=== PATIENT | female | born 1960 | race Caucasian/White ===

== ENCOUNTER → 2016-11-08 | Outpatient (CLI) | payer OTHER ==
[2015-10-06 16:16] VITALS: BP 142/67
[~2016-11-08] MED LIST: BUDE1AMP IH; BUPR300T4 PO; CRESTOR40 MG PO; CYCL10TA2 PO; DICL75TA PO; GABA-586 PO; IPRA4AER IH; LISI1TAB3 PO; LORA10TA3 PO; MELO15TA23 PO; NORT25CA PO; OMEP20CA9 PO; OXYC-323 PO; SENN1TAB70 PO; TEMA30CA PO; TRAZ100T12 PO; VENL75CA6 PO; ZOLP10TA PO
--- NOTE | 2016-11-08 14:55 | KCIC ---
Bilateral digital screening mammograms: Reason for examination: Routine screening. Comparison is made to previous study dated 04/29/2015. The skin and nipples show no abnormalities. No abnormal lymph nodes are seen. The breast parenchyma is predominantly fatty. (Breast density: Category A.) There are small parenchymal densities seen bilaterally which have not changed. There are no new dominant masses, suspicious calcifications or architectural distortions. Impression: No evidence of malignancy. Recommend routine screening. BI-RADS Category 2: Benign. "Our facility is accredited by the [employer] Mammography Program." This patient's information has been entered into a reminder system for the patient to be notified with the results of her examination and a target date for the next mammogram. Electronically signed by: Majo Moralez MD (11/08/2016 2:51 PM)
== END | disposition home or self-care (01) ==
LOC: KCIC MAMMO 13:52
PROVIDERS: ATTEND Nurse Practitioner Family
DX: Z12.31 Encounter for screening mammogram for malignant neoplasm of breast (principal)
CPT/HCPCS: G0202; 77067

== ENCOUNTER → 2016-12-19 | Outpatient (CLI) | payer OTHER ==
[2015-10-06 16:16] VITALS: BP 142/67
--- NOTE | 2016-12-19 16:30 | CARD ---
APPROVED REPORT EXAM: Two-dimensional and M-mode echocardiogram with Doppler and color Doppler. Other Information Quality : Average Rhythm : NSR INDICATION Syncope 2D DIMENSIONS RVDd2.4 (2.9-3.5cm)Left Atrium(2D)2.9 (1.6-4.0cm) IVSd1.0 (0.7-1.1cm)Aortic Root(2D)3.0 (2.0-3.7cm) LVDd3.8 (3.9-5.9cm)LVOT Diameter2.0 (1.8-2.4cm) PWd1.0 (0.7-1.1cm)LVDs2.2 (2.5-4.0cm) FS (%) 32.5 %SV46.1 ml LVEF(%)64.3 (>50%) Aortic Valve AoV Peak Dion.122.6cm/sAoV VTI25.1cm AO Peak GR.6.0mmHgLVOT Peak Dion.128.1cm/s LVOT VTI 28.26cmAO Mean GR.3mmHg AMOR (VMAX)3.00ax6DPR (VTI)3.48cm2 Mitral Valve MV E Ibltmnyj04.7cm/sMV DECEL [id number] MV A Tihnepnv21.8cm/sMV DBW00tl E/A Ratio1.2MV A Cqtpkgvm786da MVA (PHT)3.74cm2 TDI E/Lateral E'9.4E/Medial E'10.3 Tricuspid Valve TR P. Dnpnzoxd717qa/sRAP GVAEZORY3zoEx TR Peak Gr.63iuGrTBCO98jsHe Pulmonary Vein S1 Lysudxff30.2cm/sD2 Yfjwhdjs46.0cm/s LEFT VENTRICLE The left ventricle is normal size. There is normal left ventricular wall thickness. Left ventricle sy stolic function is normal. The Ejection Fraction is 60-65%. There is normal LV segmental wall motion. The left ventricular diastolic function and filling is normal for age. There is no ventricular septa l defect visualized. RIGHT VENTRICLE The right ventricle is normal size. The right ventricular systolic function is normal. ATRIA The left atrium size is normal. The right atrium size is normal. The interatrial septum is intact wit h no evidence for an atrial septal defect or patent foramen ovale as noted on 2-D or Doppler imaging. AORTIC VALVE The aortic valve is mildly to moderately calcified. The aortic valve is trileaflet. Doppler and Color Flow revealed no significant aortic regurgitation. There is no significant aortic valvular stenosis. MITRAL VALVE The mitral valve is normal in structure. There is no mitral valve stenosis. Doppler and Color Flow re vealed mild mitral regurgitation. TRICUSPID VALVE The tricuspid valve is not well visualized. Doppler and Color Flow revealed trace to mild tricuspid r egurgitation. The PA pressure was estimated at 30 mmHg. There is no tricuspid valve stenosis. PULMONIC VALVE The pulmonic valve is not well visualized. Doppler and Color Flow revealed no pulmonic valvular regur gitation. There is no pulmonic valvular stenosis. GREAT VESSELS The aortic root is normal in size. The ascending aorta is normal in size. Normal pulmonary venous estefania w (Doppler). The IVC is normal in size and collapses >50% with inspiration. PERICARDIAL EFFUSION There is a trace to small pericardial effusion with no hemodynamic significance. Critical Notification Critical Value: No <Conclusion> The left ventricle is normal size. Left ventricle systolic function is normal. The Ejection Fraction is 60-65%. There is no significant aortic valvular stenosis. Doppler and Color Flow revealed no significant aortic regurgitation. Doppler and Color Flow revealed mild mitral regurgitation. Doppler and Color Flow revealed trace to mild tricuspid regurgitation. The PA pressure was estimated at 30 mmHg. There is a trace to small pericardial effusion with no hemodynamic significance.
== END | disposition home or self-care (01) ==
LOC: ECHO 12:43
PROVIDERS: ATTEND Internal Medicine Cardiovascular Disease
DX: I08.1 Rheumatic disorders of both mitral and tricuspid valves (principal); I31.3 Pericardial effusion (noninflammatory)
CPT/HCPCS: 93306

== ENCOUNTER 2017-01-09 08:21 | Outpatient (CLI) | payer OTHER ==
[2017-01-09] VITALS (9 sets, daily range): BP systolic 113–142; BP diastolic 73–83
[~2017-01-09 08:21] MED LIST changes: +HEPARIN for IV BOLUS 10,000 UNIT/10 ML VIAL. ONE; +IODIXANOL 320 MG/ML 100 ML VIAL. ONE; +IOHEXOL 300 MG/ML 100ML VIAL. ONE; +LIDOCAINE 2% 20 ML VIAL. ONE; +MIDAZOLAM HCL/PF 2 MG/2 ML VIAL. ONE; +NITROGLYCERIN 200 MCG/2 ML SYRINGE FOR CATH/VASC LAB. ONE; +VERAPAMIL 5 MG/2 ML VIAL. ONE; +fentaNYL PF VIAL 100 MCG/2 ML VIAL ONE
[2017-01-09] MEDS ORDERED: VERAPAMIL 5 MG/2 ML VIAL. IART ONE (08:30)
[2017-01-09] MEDS ORDERED: NITROGLYCERIN 200 MCG/2 ML SYRINGE FOR CATH/VASC LAB. IART ONE (08:30)
[2017-01-09] MEDS ORDERED: IOHEXOL 300 MG/ML 100ML VIAL. IART ONE (08:30)
[2017-01-09] MEDS ORDERED: HEPARIN for IV BOLUS 10,000 UNIT/10 ML VIAL. IART ONE (08:30)
[2017-01-09] MEDS ORDERED: fentaNYL PF VIAL 100 MCG/2 ML VIAL IV ONE (08:30)
[2017-01-09] MEDS ORDERED: MIDAZOLAM HCL/PF 2 MG/2 ML VIAL. IV ONE (08:30)
[2017-01-09] MEDS ORDERED: LIDOCAINE 2% 20 ML VIAL. IJ ONE (08:30)
[2017-01-09 08:41] LABS: CALCIUM 8.8 mg/dL (8.5-10.1); CREATININE 1.1 mg/dL (0.6-1.0); POTASSIUM 3.9 mmol/L (3.5-5.1)
[2017-01-09 08:42] LABS: INR 0.9 (0.8-1.1); PROTHROMBIN TIME PATIENT 11.8 SEC (11.7-14.0)
[2017-01-09 08:43] LABS: HEMATOCRIT 38.9 % (36.0-47.0); HEMOGLOBIN 13.1 g/dL (12.0-15.5); RED BLOOD COUNT 3.85 x10^6/uL (3.50-5.40); WHITE BLOOD COUNT 9.7 x10^3/uL (4.0-11.0)
[2017-01-09 08:44] LABS: BASO # 0.1 x10^3/uL (0.0-0.2); BASO % 1 % (0-3); EOS % 4 % (0-3); LYMPH # 4.1 x10^3/uL (1.0-4.8); LYMPH % 42 % (24-48); MEAN CORPUSCULAR HEMOGLOBIN 34 pg (25-35); MEAN CORPUSCULAR HGB CONC 34 g/dL (31-37); MEAN CORPUSCULAR VOLUME 101 fL (79-100); MONO % 10 % (0-9); NEUT % 44 % (31-73); PLATELET COUNT 246 x10^3/uL (140-400); RED CELL DISTRIBUTION WIDTH 13.8 % (11.5-14.5)
[2017-01-09] MEDS ORDERED: CONTRAST GIVEN MC PRN (08:45)
--- NOTE | 2017-01-09 09:17 | CARD ---
APPROVED REPORT Procedure(s) performed: Left heart catheterization, selective coronary angiography and left ventricul ography via right transradial approach Moderate sedation: 30 min INDICATION The indication(s) include : unstable angina . PROCEDURE NARRATIVE After explaining the risks, benefits and alternative options, informed consent was obtained from jorge ent. Patient was brought to the cardiac [facility] [employer] and right wrist was prepped and draped in the usual fashion after confirming a positive modified Elie's test. Arterial access was obtained in the [facility] t radial artery and a 6 Uzbek sheath was inserted. 6 Uzbek Cristian and 6F JR4 catheters were used t o perform selective angiography of the left and right coronary arteries respectively. 6 Uzbek pigta il catheter was used to perform left ventriculography. Patient tolerated the procedure well. Hemost asis was achieved using TR band. There were no immediate complications. The following findings were noted. FINDINGS 1. Hemodynamics: Left ventricular end-diastolic pressure of 20 mmHg. No pullback gradient across th e aortic valve. 2. Left ventriculography: Normal left ventricle systolic function with ejection fraction estimated at 75%. No significant mitral regurgitation seen. 3. Coronary angiography: a. The left main coronary artery arose from the left sinus of Valsalva, gave rise to the left anteri or descending and left circumflex arteries and did not show any significant stenosis. b. The left anterior descending artery did not show any significant stenosis. c. The left circumflex artery did not show any significant stenosis. d. The right coronary artery was a large and dominant vessel arising from the right sinus of Valsalv a that did not show any significant stenosis. Conclusion 1. No significant coronary artery disease 2. Normal left ventricle systolic function with ejection fraction estimated at 75% Recommendations Cardiac Risk Reduction Program
[2017-01-09] MEDS ORDERED: IV 1/2 NORMAL SALINE 1,000 ML IV SCH (09:18)
--- NOTE | 2017-01-09 09:18 | PDOC ---
MODERATE SEDATION ASSESSMENT RISKS/ALTERNATIVES Risks/Alternatives Risks and alternatives of this type of sedation and procedure discussed with: RISK/ALTERNATIVES: Patient H & P ON CHART H & P H & P on chart and reviewed for co-morbid conditions and appropriate labs. H&P ON CHART: Yes STATUS PREG STATUS ASSESSED: N/A MEDS/ALLERGIES REVIEWED Meds/Allergies Reviewed Medications and Allergies including time and route of recently administered narcotics and sedatives. MEDS/ALLERGIES REVIEWED: Yes ASA RATING ASA RATING: II AIRWAY ASSESSMENT Airway Assessment Airway patency, oral function limitations, presence of caps, crowns, dentures, partials, and ability to extend neck assessed. AIRWAY ASSESSMENT: Yes MALLAMPATI SCORE MALLAMPATI SCORE: II PRE-SEDATION ASSESSMENT PRE-SEDATION ASSESSMENT: Yes NORMA SAL MD Jan 09, 2017 09:18
[2017-01-09] MEDS ORDERED: HYDR25TA9 PO (10:17)
[2017-01-09] MEDS ORDERED: LISI-338 PO (10:17)
[2017-01-09] MEDS ORDERED: FAMO40TA4 PO (10:17)
== END 2017-01-09 11:20 | disposition home or self-care (01) ==
LOC: CCL 08:21
PROVIDERS: ATTEND Internal Medicine Cardiovascular Disease
DX: I20.9 Angina pectoris, unspecified (principal); I10 Essential (primary) hypertension; F44.9 Dissociative and conversion disorder, unspecified; M19.91 Primary osteoarthritis, unspecified site; F41.9 Anxiety disorder, unspecified; F32.9 Major depressive disorder, single episode, unspecified; F17.200 Nicotine dependence, unspecified, uncomplicated; Z86.69 Personal history of other diseases of the nervous system and sense organs; Z88.6 Allergy status to analgesic agent; Z90.49 Acquired absence of other specified parts of digestive tract; Z90.710 Acquired absence of both cervix and uterus; Z72.89 Other problems related to lifestyle; Z88.1 Allergy status to other antibiotic agents; Z88.0 Allergy status to penicillin; Z88.8 Allergy status to other drugs, medicaments and biological substances
CPT/HCPCS: 36415; 80048; 85025; 85610; 93458; 99152; 99153; C1769; C1892; J1644; J2250; J3010; J3490; Q9967; J2001

== ENCOUNTER → 2017-05-15 | Outpatient (CLI) | payer OTHER | END | disposition home or self-care (01) | LOC: KCIC 11:24 | DX: M51.37 Other intervertebral disc degeneration, lumbosacral region (principal); I70.0 Atherosclerosis of aorta; M79.605 Pain in left leg | CPT/HCPCS: 72114 ==

== ENCOUNTER → 2017-09-21 | Outpatient (CLI) | payer OTHER | END | disposition home or self-care (01) | LOC: KCIC DEXA 10:09 | DX: I10 Essential (primary) hypertension (principal); Z13.820 Encounter for screening for osteoporosis (principal); M85.89 Other specified disorders of bone density and structure, multiple sites; E78.00 Pure hypercholesterolemia, unspecified | CPT/HCPCS: 77080 ==

== ENCOUNTER → 2017-11-13 | Outpatient (CLI) | payer OTHER | END | disposition home or self-care (01) | LOC: KCIC MAMMO 13:55 | DX: Z12.31 Encounter for screening mammogram for malignant neoplasm of breast (principal) | CPT/HCPCS: 77067 ==

== ENCOUNTER → 2017-11-30 | Outpatient (CLI) | payer OTHER | END | disposition home or self-care (01) | LOC: KCIC MRI 12:26 | DX: M51.36 Other intervertebral disc degeneration, lumbar region (principal); I10 Essential (primary) hypertension; E78.00 Pure hypercholesterolemia, unspecified; E78.5 Hyperlipidemia, unspecified; J45.909 Unspecified asthma, uncomplicated; K21.9 Gastro-esophageal reflux disease without esophagitis | CPT/HCPCS: 72148 ==

== ENCOUNTER → 2017-12-14 | Outpatient (CLI) | payer OTHER | END | disposition home or self-care (01) | LOC: PNCL 09:35 | DX: M54.5 Low back pain (principal); M79.605 Pain in left leg; I10 Essential (primary) hypertension; J44.9 Chronic obstructive pulmonary disease, unspecified; E78.00 Pure hypercholesterolemia, unspecified; E78.5 Hyperlipidemia, unspecified; F32.9 Major depressive disorder, single episode, unspecified; Z87.891 Personal history of nicotine dependence; Z85.42 Personal history of malignant neoplasm of other parts of uterus; Z90.49 Acquired absence of other specified parts of digestive tract; Z90.710 Acquired absence of both cervix and uterus; Z86.69 Personal history of other diseases of the nervous system and sense organs | CPT/HCPCS: 99214 ==

== ENCOUNTER → 2017-12-20 | Outpatient (CLI) | payer OTHER ==
[~2017-12-20] MED LIST changes: -BUDE1AMP IH; -BUPR300T4 PO; -CRESTOR40 MG PO; -CYCL10TA2 PO; -DICL75TA PO; -GABA-586 PO; -HEPARIN for IV BOLUS 10,000 UNIT/10 ML VIAL. ONE; -IODIXANOL 320 MG/ML 100 ML VIAL. ONE; +IOHEXOL 180 MG/ML 10 ML VIAL.; -IOHEXOL 300 MG/ML 100ML VIAL. ONE; -IPRA4AER IH; -LIDOCAINE 2% 20 ML VIAL. ONE; +LIDOCAINE 2% PF 2ML VIAL.; -LISI1TAB3 PO; -LORA10TA3 PO; -MELO15TA23 PO; -MIDAZOLAM HCL/PF 2 MG/2 ML VIAL. ONE; -NITROGLYCERIN 200 MCG/2 ML SYRINGE FOR CATH/VASC LAB. ONE; -NORT25CA PO; -OMEP20CA9 PO; -OXYC-323 PO; -SENN1TAB70 PO; -TEMA30CA PO; -TRAZ100T12 PO; -VENL75CA6 PO; -VERAPAMIL 5 MG/2 ML VIAL. ONE; -ZOLP10TA PO; -fentaNYL PF VIAL 100 MCG/2 ML VIAL ONE; +methylPREDNISolone ACETATE 40 MG/ML VIAL.; +methylPREDNISolone ACETATE 80 MG/ML VIAL.
== END | disposition home or self-care (01) ==
LOC: PNCL 11:19
DX: M51.16 Intervertebral disc disorders with radiculopathy, lumbar region (principal); I10 Essential (primary) hypertension; J44.9 Chronic obstructive pulmonary disease, unspecified; F31.9 Bipolar disorder, unspecified; F41.9 Anxiety disorder, unspecified; K21.9 Gastro-esophageal reflux disease without esophagitis; Z88.0 Allergy status to penicillin; Z88.5 Allergy status to narcotic agent; Z88.1 Allergy status to other antibiotic agents; Z88.8 Allergy status to other drugs, medicaments and biological substances; Z98.42 Cataract extraction status, left eye; Z98.41 Cataract extraction status, right eye; Z96.1 Presence of intraocular lens; H40.9 Unspecified glaucoma; Z90.49 Acquired absence of other specified parts of digestive tract; Z90.710 Acquired absence of both cervix and uterus; M19.90 Unspecified osteoarthritis, unspecified site; Z79.899 Other long term (current) drug therapy; Z86.69 Personal history of other diseases of the nervous system and sense organs; Z85.42 Personal history of malignant neoplasm of other parts of uterus; Z87.891 Personal history of nicotine dependence
CPT/HCPCS: 62323; J1030; J1040; J2001; Q9965

== ENCOUNTER → 2018-01-09 | Outpatient (CLI) | payer OTHER ==
[2017-01-09 11:05] VITALS: BP 133/74
[~2018-01-09] MED LIST changes: +ACET500T68 PO; +BUDE1AMP IH; +BUPR300T4 PO; +CETI10TA16 PO; +CRESTOR40 MG PO; +CYCL10TA2 PO; +DICL75TA PO; +FAMO40TA4 PO; +GABA-586 PO; +HYDR25TA9 PO; +IBUP100O25 PO; -IOHEXOL 180 MG/ML 10 ML VIAL.; +IOHEXOL 180 MG/ML 10 ML VIAL. ONE; +IPRA4AER IH; -LIDOCAINE 2% PF 2ML VIAL.; +LIDOCAINE 2% PF 2ML VIAL. ONE; +LISI-338 PO; +LISI1TAB3 PO; +LORA0.5T PO; +LORA10TA3 PO; +MELO15TA23 PO; +NAPR220C4 PO; +NORT25CA PO; +OMEP20CA9 PO; +OXYC-323 PO; +PROAIR HFA8.5 GM INH; +SALM50DI IH; +SENN1TAB70 PO; +TEMA30CA PO; +TRAZ-86 PO; +VENL75CA6 PO; +ZOLP10TA PO; -methylPREDNISolone ACETATE 40 MG/ML VIAL.; +methylPREDNISolone ACETATE 40 MG/ML VIAL. ONE; -methylPREDNISolone ACETATE 80 MG/ML VIAL.; +methylPREDNISolone ACETATE 80 MG/ML VIAL. ONE
--- NOTE | 2018-01-09 21:58 | PAIN ---
DATE OF SERVICE: 01/09/2018 PROGRESS NOTE FOR PAIN CLINIC DIAGNOSIS: Lumbar radiculopathy with lumbar degenerative disk disease. HISTORY OF PRESENT ILLNESS: The patient is a 57-year-old female who returns for followup status post lumbar epidural steroid injection x 1. The patient reports only about 20% improvement initially with the pain returning in her low back and left lower extremity. The patient reports the pain left hip, posterior gluteus, posterior thigh, radiating to the posterior knee on the left side. The patient reports it is an 8 on a scale of 10 at its worst, average and at its least and is an 8 today. The patient reports it is tingling, burning, cramping, shooting with increased cramping after the injection. The patient reports she feels that her back is more mobile now, but the pain in her leg is still fairly persistent. The patient reports it awakens her from sleep about every 6 hours, better with repositioning, that is getting out of bed, changing positions and then getting back to sleep. The patient reports no new motor or sensory deficits, no new bowel or bladder incontinence or other complaints. PHYSICAL EXAMINATION: VITAL SIGNS: The patient's blood pressure is /69, pulse 78, respirations 18, temperature 98.1 degrees Fahrenheit. Height is 5 feet 6 inches, weight is 191 pounds. GENERAL: The patient is awake, alert, oriented, appropriate, very pleasant demeanor. HEENT: Shows normocephalic, atraumatic. Extraocular movements are intact and symmetrical. Oral cavity: Mucous membranes are moist and pink. Dentition is intact. NECK: Shows anterior throat supple without palpable lymphadenopathy noted. Swallow reflex is symmetrical. CHEST: Shows normal on inspection. Breath sounds are clear to auscultation bilaterally. HEART: Shows S1, S2 clear. No murmurs auscultated. ABDOMEN: Soft, nontender, nondistended. No palpable organomegaly is noted. No rebound or guarding demonstrated. BACK: Shows spine grossly in the midline. Normal appearing thoracic kyphosis and some minor flattening of lumbar lordotic curvature. Lumbar paraspinous muscle shows symmetrical on inspection, on palpation shows some moderate tenderness, but only diffusely without significant radiation, without atrophy, hypertrophy. The patient has good rotational motion, both laterally as well as extension and flexion without significant pain reported. EXTREMITIES: Lower extremities show deep tendon reflexes 1+ in the patellar and tendo calcaneus tendons, are equal. Motor exam is approximately 5 on a scale of 5 on the right and 4/5 on the left with dorsiflexion and extension. Peripheral pulses are 1+ posterior tibia. No peripheral edema is noted bilaterally. Options were discussed with the patient. The patient's old chart was reviewed as her current medication regimen updated. Current review of systems updated today as well. We will proceed with a second lumbar epidural steroid injection today with fluoroscopic guidance. Risks were again discussed including, but not limited to bleeding, infection, possibility of epidural hematoma, subsequent neurological compromise, dural puncture, headaches, spinal cord and/or nerve damage, side effects of steroid medication and poor results regarding pain control. The patient understands and wished to proceed. The patient will return to the clinic in approximately 2 weeks for followup, was counseled on return appointment, activity level and side effects to be aware of. DIAGNOSIS: Lumbar radiculopathy with lumbar degenerative disk disease. PROCEDURE: Lumbar epidural steroid injection, translaminar approach at L5-S1 level using C-arm fluoroscopic guidance under sterile prep and drape using local anesthetic. MEDICATION INJECTED: A total of 120 mg Depo-Medrol plus 10 mL of preservative-free normal saline and 2 mL of Isovue for contrast. CONDITION AT DISCHARGE: Stable. The patient tolerated the procedure well, had no complications. DESTINEE WAYNE MD DR: IGOR/jadon JOB#: [id number] / [id number]
== END | disposition home or self-care (01) ==
LOC: PNCL 10:34
PROVIDERS: ATTEND Anesthesiology
DX: M51.16 Intervertebral disc disorders with radiculopathy, lumbar region (principal); Z88.0 Allergy status to penicillin; Z88.1 Allergy status to other antibiotic agents; Z88.5 Allergy status to narcotic agent; Z88.8 Allergy status to other drugs, medicaments and biological substances
CPT/HCPCS: 62323; J1030; J1040; J2001; Q9965

== ENCOUNTER → 2018-01-15 | Outpatient (CLI) | payer OTHER ==
[2017-01-09 11:05] VITALS: BP 133/74
[~2018-01-15] MED LIST changes: -IOHEXOL 180 MG/ML 10 ML VIAL. ONE; -LIDOCAINE 2% PF 2ML VIAL. ONE; -methylPREDNISolone ACETATE 40 MG/ML VIAL. ONE; -methylPREDNISolone ACETATE 80 MG/ML VIAL. ONE
--- NOTE | 2018-01-16 01:51 | RAD ---
MR#: [id number] Date of Study: 01/15/2018 Ordering Physician: NORMA SAL, Referring Physician: NORMA SAL, Tech: Aris Collado MBA, RDMS, RVT, RDCS, RTR APPROVED REPORT Patient Location : OUT-PATIENT Indications Lower Extremity Edema : Left Findings Stone scale images of the bilateral sapheno-femoral junctions do not reveal any obvious evidence of th rombus. The left GSV measures 4.3 mm and does not reflux. The right GSV measures 5.1 mm and does not reflux. Bilateral LSV do not show evidence of reflux. Critical Notification Critical Value: No <Conclusion> Negative for reflux. Signed by : Abad Almeida, Electronically Approved : 01/16/2018 01:50:43
== END | disposition home or self-care (01) ==
LOC: US 13:32
PROVIDERS: ATTEND Internal Medicine Cardiovascular Disease
DX: R60.0 Localized edema (principal); I10 Essential (primary) hypertension; E78.00 Pure hypercholesterolemia, unspecified; J44.9 Chronic obstructive pulmonary disease, unspecified; Z79.899 Other long term (current) drug therapy; Z72.89 Other problems related to lifestyle; Z87.891 Personal history of nicotine dependence; Z85.42 Personal history of malignant neoplasm of other parts of uterus; Z86.69 Personal history of other diseases of the nervous system and sense organs; Z90.49 Acquired absence of other specified parts of digestive tract; Z90.710 Acquired absence of both cervix and uterus; Z88.0 Allergy status to penicillin; Z88.1 Allergy status to other antibiotic agents; Z88.8 Allergy status to other drugs, medicaments and biological substances; Z88.5 Allergy status to narcotic agent; Z88.6 Allergy status to analgesic agent
CPT/HCPCS: 93970

== ENCOUNTER → 2018-02-13 | Outpatient (CLI) | payer OTHER ==
[2017-01-09 11:05] VITALS: BP 133/74
--- NOTE | 2018-02-13 20:52 | PAIN ---
DATE OF SERVICE: 02/13/2018 PROGRESS NOTE FOR PAIN CLINIC DIAGNOSIS: Lumbar radiculopathy with lumbar degenerative disk disease. HISTORY OF PRESENT ILLNESS: The patient is a 57-year-old female who returns for followup status post lumbar epidural steroid injection x 2. The patient reports only about 20-25% improvement overall, just for about a week after the injection. The patient reports no lasting improvement and is not interested in any further injections at this time. The patient reports no new motor or sensory deficits, no new bowel or bladder incontinence or other complaints, but still significant pain in the low back and into the left posterior gluteus, posterior thigh. The patient reports it is aching, burning, becoming more constant, worse with walking, standing, changing positions. Initially, she was doing better with walking distances and household activities, but only for a short period. The patient reports it still awakens her from sleep about every 3-4 hours. She needs to reposition and get back to sleep. The patient reports no new motor or sensory deficits, no bowel or bladder incontinence. PHYSICAL EXAMINATION: VITAL SIGNS: The patient's blood pressure is 112/72, pulse 90, respirations 18, temperature 98.2 degrees Fahrenheit, height is 5 feet 6 inches, weight is 192 pounds. GENERAL: The patient is awake, alert, oriented, appropriate, very pleasant demeanor. HEENT: Head shows normocephalic, atraumatic. Extraocular movements are intact and symmetrical. Oral cavity: Mucous membranes are moist and pink. Dentition is intact. NECK: Shows anterior throat supple without palpable lymphadenopathy noted. Swallow reflex is symmetrical. CHEST: Shows normal on inspection. Breath sounds are clear to auscultation bilaterally. HEART: Shows S1, S2 clear. No murmurs auscultated. ABDOMEN: Soft, nontender, nondistended. No palpable organomegaly is noted. No rebound or guarding demonstrated. BACK: Shows spine grossly in the midline. Normal appearing thoracic kyphosis and lumbar lordotic curvature. Lumbar paraspinous muscle shows symmetrical on inspection, on palpation shows some moderate tenderness, but only diffusely without radiation. EXTREMITIES: The patient's lower extremities show deep tendon reflexes 1+/4 in the patellar and tendo calcaneus tendons, are equal. Motor exam is strong with 4/5 on the left and 5/5 on the right dorsiflexion and extension. Peripheral pulses are 1+ posterior tibia. No peripheral edema is noted bilaterally. Options were discussed with the patient. The patient's old chart was reviewed as her current medication regimen updated. Current review of systems updated today as well. We will hold on any further injections. I did discuss some other alternatives and we will order water therapy to start for about 6 weeks to see if this may decrease some of the pain and increase flexibility, stretching and strengthening exercises as well. The patient was encouraged to maintain stretching and activities that she can tolerate in the meantime and will start water therapy as ordered. DESTINEE WAYNE MD DR: IGOR/jadon JOB#: [id number] / [id number]
== END | disposition home or self-care (01) ==
LOC: PNCL 09:18
PROVIDERS: ATTEND Anesthesiology
DX: M51.16 Intervertebral disc disorders with radiculopathy, lumbar region (principal)
CPT/HCPCS: 99212

== ENCOUNTER → 2018-11-27 | Outpatient (CLI) | payer MEDICAID, OTHER ==
[2017-01-09 11:05] VITALS: BP 133/74
[~2018-11-27] MED LIST changes: +ALBU2.5V8 INH; -GABA-586 PO; +GABA300C18 PO; +HYDR-2145 PO; -HYDR25TA9 PO; +OMEP20CA10 PO; -OMEP20CA9 PO; -OXYC-323 PO; +OXYC1TAB15 PO; -PROAIR HFA8.5 GM INH
--- NOTE | 2018-11-27 17:37 | KCIC ---
BILATERAL SCREENING MAMMOGRAM History: Routine screening. Comparison: Bilateral mammogram November 13, 2017. Technique: Routine bilateral digital mammogram views were obtained. Findings: Breast Tissue Density A : The breasts are almost entirely fatty. There are no dominant masses, suspicious microcalcifications, or architectural distortion. IMPRESSION: No mammographic evidence of malignancy. Recommend routine screening. BI-RADS category 1: Negative. The images were reviewed with computer aided detection. Patient information is entered into the reminder system with a target due date for the next screening mammogram. Mammography is the most sensitive method for finding small breast cancers, but it does not detect them all and is not a substitute for careful clinical examination. A negative mammogram does not negate a clinically suspicious finding and should not result in delay in biopsying a clinically suspicious abnormality. "Our facility is accredited by the [employer] Mammography Program." Electronically signed by: Kin Mosher MD (11/27/2018 5:34 PM) [id number]
== END | disposition home or self-care (01) ==
LOC: KCIC MAMMO 12:35
PROVIDERS: ATTEND Nurse Practitioner Family
DX: Z12.31 Encounter for screening mammogram for malignant neoplasm of breast (principal)
CPT/HCPCS: 77067

== ENCOUNTER → 2018-12-02 | Outpatient (CLI) | payer MEDICAID ==
[2017-01-09 11:05] VITALS: BP 133/74
--- NOTE | 2018-12-03 02:39 | PAIN ---
DATE OF SERVICE: 12/02/2018 DIAGNOSIS: Lumbar radiculopathy with lumbar degenerative disk disease. HISTORY OF PRESENT ILLNESS: The patient is a 58-year-old female who returns for followup status post lumbar epidural steroid injections, last seen on 02/13/2018. The patient had undergone 2 epidural steroid injections. We ordered some physical therapy for her with pool therapy, however, she is unable to perform that at the time, I would like to look into this again. Now, the patient reports pain is still in the low back and right leg, posterior gluteus, posterior thigh, posterior and lateral thigh as well on the right side. The patient reports it has been 8 on a scale of 10 at its worst average and at its least and is an 8 today. The patient reports it is a burning, aching, worse with standing, walking, changing positions, better with lying down and sitting, but with prolonged sitting greater than 10-15 minutes, can cause the pain to increase as well. The patient reports no loss of motor function. No new bowel or bladder incontinence or other complaints. PHYSICAL EXAMINATION: VITAL SIGNS: The patient's blood pressure is 115/73, pulse 81, respirations 18 and temperature 98.6 degrees Fahrenheit. Height is 5 feet 6 inches. GENERAL: The patient describes the pain as burning and aching. HEENT: Shows normocephalic and atraumatic. Extraocular movements are intact and symmetrical. Oral cavity; mucous membranes moist and pink. Dentition is intact. NECK: Shows anterior throat supple without palpable lymphadenopathy noted. Swallow reflex symmetrical. CHEST: Shows normal with inspection. Breath sounds clear to auscultation bilaterally. HEART: Shows S1 and S2 clear. No murmurs auscultated. ABDOMEN: Soft, nontender, and nondistended. No palpable organomegaly is noted. No rebound or guarding demonstrated. BACK: Shows spine grossly in the midline. Slight exaggeration of thoracic kyphosis, mild flattening of lumbar lordotic curvature. Lumbar paraspinous muscle shows symmetrical on inspection. On palpation she has some moderate tenderness diffusely bilaterally, but only diffusely without significant radiation. EXTREMITIES: The patient's lower extremities show deep tendon reflexes at 1+ in the patellar and tendo-calcaneus tendons. Motor exam is approximately 4 on a scale of 5 on the left and 5/5 on the right, but intact bilaterally. Peripheral pulses are 1+ posterior tibial. No peripheral edema is noted. The patient's back shows good rotational motion of lumbar spine, both laterally greater than 10 degrees right and left as well as extension greater than 10 degrees, forward flexion 45 degrees without exacerbation of pain in any of these rotations. PLAN: Options were discussed with the patient. The patient's old chart was reviewed as her current medication regimen updated. Current review of systems updated today as well. We will proceed with ordering physical therapy and with water therapy, also try Medrol Dosepak in the meantime to see if this will get some of the pain reduced as well. The patient was encouraged to follow up with the water therapy and once this is completed, will follow up with our office as well. DESTINEE WAYNE MD DR: IGOR/jadon JOB#: [id number] / [id number]
== END | disposition home or self-care (01) ==
LOC: PNCL 08:42
PROVIDERS: ATTEND Anesthesiology
DX: M51.16 Intervertebral disc disorders with radiculopathy, lumbar region (principal)
CPT/HCPCS: G0463

== ENCOUNTER → 2019-01-30 | Outpatient (CLI) | payer MEDICAID ==
[2017-01-09 11:05] VITALS: BP 133/74
[~2019-01-30] MED LIST changes: +LISI1TAB23 PO; -LISI1TAB3 PO
--- NOTE | 2019-01-30 11:50 | CARD ---
MR#: [id number] Date of Study: 01/30/2019 Ordering Physician: NORMA SAL, Referring Physician: NORMA SAL Tech: Paty Palomino RDCS APPROVED REPORT EXAM: Two-dimensional and M-mode echocardiogram with Doppler and color Doppler. Other Information Quality : GoodHR: 76bpm Rhythm : NSR INDICATION Hypertension/HCVD RISK FACTORS Hypertension 2D DIMENSIONS RVDd2.8 (2.9-3.5cm)Left Atrium(2D)3.5 (1.6-4.0cm) IVSd1.1 (0.7-1.1cm)Aortic Root(2D)2.9 (2.0-3.7cm) LVDd3.6 (3.9-5.9cm)LVOT Diameter2.0 (1.8-2.4cm) PWd1.2 (0.7-1.1cm)LVDs2.4 (2.5-4.0cm) FS (%) 32.6 %SV33.6 ml Aortic Valve AoV Peak Dion.124.1cm/sAoV VTI25.4cm AO Peak GR.6.2mmHgLVOT Peak Dion.118.5cm/s AO Mean GR.3mmHgAVA (VMAX)3.06cm2 Mitral Valve MV E Xgutbbpm88.7cm/sMV DECEL FSJE525tk MV A Kzjlvffo79.6cm/sE/A Ratio0.9 MV A Ccbljnha520wh Pulmonary Valve PV Peak Xhpmrstx47.1cm/s Tricuspid Valve TR P. Jvktlvxl274hv/sTR Peak Gr.23mmHg Pulmonary Vein S1 Cejwucis96.7cm/sD2 Okixevar31.4cm/s PVa aqdogbfz039hxub LEFT VENTRICLE The left ventricle is normal size. There is borderline to mild concentric left ventricular hypertroph y. The left ventricular systolic function is normal and the ejection fraction is within normal range. Ejection fraction 55-60%. There is normal LV segmental wall motion. Transmitral Doppler flow patter n is Grade I-abnormal relaxation pattern. RIGHT VENTRICLE The right ventricle is normal size. There is normal right ventricular wall thickness. The right ventr icular systolic function is normal. ATRIA The left atrium size is normal. The right atrium size is normal. The interatrial septum is intact wit h no evidence for an atrial septal defect or patent foramen ovale as noted on 2-D or Doppler imaging. AORTIC VALVE The aortic valve is normal in structure and function. Doppler and Color Flow revealed no significant aortic regurgitation. There is no significant aortic valvular stenosis. MITRAL VALVE The mitral valve is normal in structure and function. There is no mitral valve stenosis. Doppler and Color-flow revealed trace mitral regurgitation. TRICUSPID VALVE The tricuspid valve is normal in structure and function. Doppler and Color Flow revealed trace tricus pid regurgitation. There is no tricuspid valve stenosis. PULMONIC VALVE The pulmonary valve is normal in structure and function. GREAT VESSELS The aortic root is normal in size. The ascending aorta is normal in size. The IVC is normal in size a nd collapses >50% with inspiration. Estimated PAP 26 mmHg. PERICARDIAL EFFUSION There is no evidence of significant pericardial effusion. Critical Notification Critical Value: No <Conclusion> The left ventricle is normal size. The left ventricular systolic function is normal and the ejection fraction is within normal range. Ejection fraction 55-60%. There is borderline to mild concentric left ventricular hypertrophy. There is no significant aortic valvular stenosis. Doppler and Color Flow revealed no significant aortic regurgitation. Doppler and Color-flow revealed trace mitral regurgitation. Doppler and Color Flow revealed trace tricuspid regurgitation. Signed by : Addi Mota MD Electronically Approved : 01/30/2019 11:50:07
== END | disposition home or self-care (01) ==
LOC: ECHO 10:40
PROVIDERS: ATTEND Internal Medicine Cardiovascular Disease
DX: I51.7 Cardiomegaly (principal); I10 Essential (primary) hypertension
CPT/HCPCS: 93306

== ENCOUNTER → 2019-04-08 | Outpatient (CLI) | payer MEDICAID ==
[2017-01-09 11:05] VITALS: BP 133/74
[~2019-04-08] MED LIST changes: +OMEP-229 PO; -OMEP20CA10 PO
--- NOTE | 2019-04-08 16:37 | KCIC ---
MR of the right shoulder HISTORY: Pain for 3 months. Previous surgery in 2014. TECHNIQUE: Routine multiplanar sequences are obtained. FINDINGS: Acromioclavicular joint is intact. Signal within the rotator cuff compatible with tendinosis. Tendon is thin, with evidence of broad articular side tearing of the supraspinatus and infraspinatus tendons. No full-thickness rupture. Subscapularis tendon intact. No significant subdeltoid bursal fluid. No significant joint effusion. No acute articular cartilage defect. Mild DJD at the glenohumeral joint. Blunting of the superior labrum. There appears to have been a surgical biceps tenodesis, with a proximal humeral screw. Remaining labrum appears to be intact. No acute fracture or aggressive bone destruction. No acute soft tissue abnormality. IMPRESSION: 1. Rotator cuff tendinosis. Broad articular side tearing of the supraspinatus and infraspinatus tendon without full-thickness tear. 2. Apparent surgical changes of the biceps tenodesis. Electronically signed by: Schuyler Ortiz MD (04/08/2019 4:35 PM) [id number]
== END | disposition home or self-care (01) ==
LOC: KCIC MRI 14:39
PROVIDERS: ATTEND Orthopaedic Surgery
DX: M75.101 Unspecified rotator cuff tear or rupture of right shoulder, not specified as traumatic (principal)
CPT/HCPCS: 73221

== ENCOUNTER → 2019-12-24 | Outpatient (CLI) | payer MEDICAID ==
[2017-01-09 11:05] VITALS: BP 133/74
[~2019-12-24] MED LIST changes: -BUPR300T4 PO; +BUPR300T92 PO; -OMEP-229 PO; +OMEP20CA16 PO; +TRAZ-123 PO; -TRAZ-86 PO
--- NOTE | 2019-12-24 18:19 | KCIC ---
Bilateral diagnostic digital mammograms with 3D tomosynthesis: Reason for examination: Bilateral intermittent breast pain laterally radiating to the nipples for 4 to 5 months. Comparison is made to previous studies dated back to 04/29/2015. Interpretation is made with the benefit of CAD. The skin and nipples show no abnormalities. No abnormal lymph nodes are seen. The breast parenchyma is predominantly fatty. (Breast density: Category A.) There continued be small nodular parenchymal densities bilaterally which are stable. There are no new dominant masses, suspicious calcifications or architectural distortions. Impression: No evidence of malignancy. Ultrasound to follow. BI-RADS Category 0: Incomplete. Needs additional imaging evaluation. Bilateral breast ultrasound: Ultrasound examination was performed bilaterally in the areas of clinical concern and the axilla. No cystic or solid nodules are seen in either breast. There is a small 6.9 mm hypoechoic circumscribed nodule probably representing an intramammary lymph node at the 3:00 position 12 cm from the nipple. No abnormal appearing lymph nodes are seen in the axilla. IMPRESSION: Probable intramammary lymph node at the 3:00 position 12 cm from the nipple in the left breast. No other focal abnormality seen in either breast. Recommend 6 month follow-up ultrasound examination of the left breast. BI-RADS Category 3: Probably Benign. "Our facility is accredited by the [employer] Mammography Program." This patient's information has been entered into a reminder system for the patient to be notified with the results of her examination and a target date for the next mammogram. Electronically signed by: Majo Moralez MD (12/24/2019 6:16 PM) [id number]
== END | disposition home or self-care (01) ==
LOC: KCIC MAMMO 12:33
PROVIDERS: ATTEND Nurse Practitioner Family
DX: R92.2 Inconclusive mammogram (principal); N64.4 Mastodynia
CPT/HCPCS: 76641; 77066

== ENCOUNTER → 2020-02-04 | Outpatient (CLI) | payer MEDICAID ==
[2017-01-09 11:05] VITALS: BP 133/74
--- NOTE | 2020-02-05 12:56 | CARD ---
MR#: [id number] Date of Study: 02/04/2020 Ordering Physician: NORMA SAL, Referring Physician: NORMA SAL Tech: Shruti Ortega RDCS APPROVED REPORT EXAM: Two-dimensional and M-mode echocardiogram with Doppler and color Doppler. Other Information Quality : Good INDICATION Hypertension/HCVD 2D DIMENSIONS RVDd2.8 (2.9-3.5cm)Left Atrium(2D)2.8 (1.6-4.0cm) IVSd0.7 (0.7-1.1cm)Aortic Root(2D)2.9 (2.0-3.7cm) LVDd3.9 (3.9-5.9cm)LVOT Diameter2.1 (1.8-2.4cm) PWd1.0 (0.7-1.1cm)LVDs2.7 (2.5-4.0cm) FS (%) 31.7 %SV39.5 ml LVEF(%)60.4 (>50%) Aortic Valve AoV Peak Dion.136.3cm/sAoV VTI24.6cm AO Peak GR.7.4mmHgLVOT Peak Dion.116.8cm/s AO Mean GR.4mmHgAVA (VMAX)2.91cm2 AMOR (VTI)3.40cm2 Mitral Valve MV E Exxgsytd39.1cm/sMV DECEL GVXF251oy MV A Ihrhbafg50.2cm/sE/A Ratio1.1 Tricuspid Valve TR P. Xpwctlry961we/sRAP BJEKJQYC9fgNr TR Peak Gr.39phAtQBOU42nsSb Pulmonary Vein S1 Fmaqgugy29.2cm/sD2 Tcdjojuu87.1cm/s LEFT VENTRICLE The left ventricle is normal size. There is normal left ventricular wall thickness. The left ventricu lar systolic function is normal and the ejection fraction is within normal range. The Ejection Fracti on is 55-60%. There is normal LV segmental wall motion. Transmitral Doppler flow pattern is Grade I-a bnormal relaxation pattern. RIGHT VENTRICLE The right ventricle is normal size. The right ventricular systolic function is normal. ATRIA The left atrium size is normal. The right atrium size is normal. The interatrial septum is intact wit h no evidence for an atrial septal defect or patent foramen ovale as noted on 2-D or Doppler imaging. AORTIC VALVE The aortic valve is calcified but opens well. Doppler and Color Flow revealed no significant aortic r egurgitation. There is no significant aortic valvular stenosis. MITRAL VALVE The mitral valve is calcified but opens well. There is no evidence of mitral valve prolapse. There is no mitral valve stenosis. Doppler and Color-flow revealed trace mitral regurgitation. TRICUSPID VALVE The tricuspid valve is normal in structure and function. Doppler and Color Flow revealed trace tricus pid regurgitation. The PA pressure was estimated at 27 mmHg. There is no tricuspid valve stenosis. PULMONIC VALVE The pulmonary valve is normal in structure and function. Doppler and Color Flow revealed trace to mil d pulmonic valvular regurgitation. There is no pulmonic valvular stenosis. GREAT VESSELS The aortic root is normal in size. The ascending aorta is normal in size. The IVC is normal in size a nd collapses >50% with inspiration. PERICARDIAL EFFUSION There is no evidence of significant pericardial effusion. Critical Notification Critical Value: No <Conclusion> The left ventricle is normal size. The left ventricular systolic function is normal and the ejection fraction is within normal range. The Ejection Fraction is 55-60%. Doppler and Color Flow revealed no significant aortic regurgitation. There is no significant aortic valvular stenosis. Doppler and Color-flow revealed trace mitral regurgitation. Doppler and Color Flow revealed trace tricuspid regurgitation. The PA pressure was estimated at 27 mmHg. Signed by : Addi Mota MD Electronically Approved : 02/05/2020 12:56:05
== END | disposition home or self-care (01) ==
LOC: ECHO 10:49
PROVIDERS: ATTEND Internal Medicine Cardiovascular Disease
DX: I08.8 Other rheumatic multiple valve diseases (principal)
CPT/HCPCS: 93306

== ENCOUNTER → 2020-02-23 | Outpatient (CLI) | payer MEDICAID ==
[2017-01-09 11:05] VITALS: BP 133/74
[~2020-02-23] MED LIST changes: +TIZA4TAB2 PO
--- NOTE | 2020-02-23 10:35 | PDOC ---
Progress Note - Pain Clinic Date of Service: DOS: DATE: 02/23/20 TIME: 10:31 Diagnosis: Dx: Lumbar radiculopathy with lumbar degenerative disc disease History or Present Illness: HPI: 59-year-old female returns for follow-up last seen November 2018 patient underwent 2 lumbar epidural steroid injections at that time patient also had physical therapy with water therapy and reports the pain was better initially but the pain returned fairly quickly over the past year or so has been getting worse in the left foot left leg now also on the right side with radiating pain from the low back into the posterior gluteus posterior thighs posterior calf and into the bilateral feet worse on the left than the right patient reports is aching tingling burning cramping becoming more constant with walking standing changing positions better with sitting or laying down generalized not awaken her from sleep at night but is much worse when she is up and around and walking standing changing positions. Patient reports no motor or sensory deficits but si gnificant fatigability especially in the left leg with walking and standing. Patient not had any new studies at this time or other diagnostics Physical Exam: VS: Blood pressure is 131/85 pulse 79 respirations 16 temperature 98.3 F weight is 194 pounds PE: PHYSICAL EXAMINATION: GENERAL: The patient is awake, alert, oriented, appropriate, very pleasant demeanor HEENT: Shows normocephalic, atraumatic. Extraocular movements are intact and symmetrical. Oral cavity: Mucous membranes moist and pink. NECK: Shows anterior throat supple without palpable lymphadenopathy noted. Swallow reflex symmetrical. CHEST: Shows normal on inspection. Breath sounds are clear bilaterally, no rales rhonchi or wheezes. HEART: Shows S1, S2 clear. No murmurs auscultated. ABDOMEN: Soft, nontender, nondistended, obese. No palpable organomegaly is not ed. No rebound or guarding demonstrated. BACK: Shows spine grossly in the midline. Normal-appearing cervical lordotic curvature. There is slightly increased thoracic kyphosis, some minor flattening of the lumbar lordotic curvature. Lumbar paraspinous muscles show symmetrical on inspection, on palpation shows some moderate tenderness diffusely throughout the upper, middle and lower distribution of the paraspinous muscles bilaterally without specific trigger points, without radiation of pain. The patient has good rotational motion of the lumbar spine, both laterally as well as extension and flexion without significant difficulty. No tenderness over the spinous processes, sacrum or sacroiliac regions. EXTREMITIES: Lower extremities show deep tendon reflexes 1+ in the patellar and tendo calcaneus tendons. Motor exam is 5 on a scale of 5 with right dorsiflexion, extension, quadriceps and hamstring flexion and 4/5 on the left. Peripheral pulses are 2+ posterior tibial. No peripheral edema is noted bilaterally. Lower extremities are warm and dry to touch, equal in color and appearance. SKIN: Shows warm and dry, good turgor. No edema. No sores, rashes or bruising throughout. Procedure: Procedure: Options were discussed with the patient. Patient's old chart was reviewed as her current medication regimen updated current review of systems updated today as well. Patient would like to try most conservative approach and we will try Medrol Dosepak patient was given instructions will side effects to be aware of with the medication and will follow-up once this is completed. Did discuss possible lumbar epidural steroid injection, as well as repeat MRI scan in the future. Patient will try the Medrol Dosepak first and follow-up once this is completed. Medication Injected: Med Injected: None Condition at Discharge: Condition at Discharge: Condition at discharge is stable DESTINEE WAYNE MD Feb 23, 2020 10:35
== END ==
LOC: PNCL 10:08
PROVIDERS: ATTEND Anesthesiology
DX: M51.16 Intervertebral disc disorders with radiculopathy, lumbar region (principal); I10 Essential (primary) hypertension; F17.210 Nicotine dependence, cigarettes, uncomplicated; Z88.0 Allergy status to penicillin; Z88.5 Allergy status to narcotic agent; Z88.8 Allergy status to other drugs, medicaments and biological substances; Z79.899 Other long term (current) drug therapy
CPT/HCPCS: G0463

== ENCOUNTER → 2020-04-07 | Outpatient (CLI) | payer MEDICAID ==
[2017-01-09 11:05] VITALS: BP 133/74
--- NOTE | 2020-04-07 12:57 | PDOC ---
Progress Note - Pain Clinic Date of Service: DOS: DATE: 04/07/20 TIME: 12:53 Diagnosis: Dx: Lumbar radiculopathy with lumbar degenerative disc disease History or Present Illness: HPI: 59-year-old female returns follow-up status post evaluation and Medrol Dosepak. Patient returns reporting that she had significant nausea with the Medrol Dosepak and discontinued after approximately 3 days. Patient reports still significant pain low back and into the left lower extremity posterior gluteus posterior thigh posterior calf into the foot involving the second third and fourth toes. Patient reports it is aching in the low back and shooting and aching in the left lower extremity. Patient reports no loss of motor function but significant tenderness and fatigability with the left leg with increasing weakness especially with standing walking and weightbearing. Patient reports her pain is a 9 on scale 10 is worse over the past week 8 on average 8 its least is an 8 today. Patient reports no new motor or sensory deficits no new bowel or bladder incontinence or other complaints Physical Exam: VS: Pressure is 130/80 pulse 76 respirations 16 temperature 97.9 F height is 5 foot 6 inches weight is 193 pounds PE: PHYSICAL EXAMINATION: GENERAL: The patient is awake, alert, oriented, appropriate, very pleasant demeanor HEENT: Shows normocephalic, atraumatic. Extraocular movements are intact and symmetrical. Oral cavity: Mucous membranes moist and pink. NECK: Shows anterior throat supple without palpable lymphadenopathy noted. Swallow reflex symmetrical. CHEST: Shows normal on inspection. Breath sounds are clear bilaterally. HEART: Shows S1, S2 clear. ABDOMEN: Soft, nontender, nondistended, obese. No palpable organomegaly is noted. BACK: Shows spine grossly in the midline. Normal-appearing cervical lordotic curvature. There is slightly increased thoracic kyphosis, some minor flattening of the lumbar lordotic curvature. Lumbar paraspinous muscles show symmetrical on inspection, on palpation shows some moderate tenderness diffusely throughout the upper, middle and lower distribution of the paraspinous muscles, but without specific trigger points, without radiation of pain. The patient has good rotational motion of the lumbar spine, both laterally as well as extension and flexion without significant difficulty. No tenderness over the spinous processes, sacrum or sacroiliac regions. EXTREMITIES: Lower extremities show deep tendon reflexes 1+ in the patellar and tendo calcaneus tendons. Motor exam is 5 on a scale of 5 with right dorsiflexion, extension, quadriceps and hamstring flexion and 4/5 on the left. Peripheral pulses are 1 posterior tibial. No peripheral edema is noted bilaterally. Lower extremities are warm and dry to touch, equal in color and appearance. SKIN: Shows warm and dry, good turgor. No edema. No sores, rashes or bruising throughout. Procedure: Procedure: Options were discussed with the patient. Patient chart was reviewed as her current medication regimen updated current review of systems updated today as well. We will obtain MRI scan lumbar spine to better assess patient's cause for radiculopathy in the left lower extremity. Patient will follow up once MRI scan is obtained we did discuss potential interventional techniques at that time. Medication Injected: Med Injected: None Condition at Discharge: Condition at Discharge: Condition at discharge is stable. DESTINEE WAYNE MD Apr 07, 2020 12:57
== END | disposition home or self-care (01) ==
LOC: PNCL 11:09
PROVIDERS: ATTEND Anesthesiology
DX: M51.16 Intervertebral disc disorders with radiculopathy, lumbar region (principal); I10 Essential (primary) hypertension; J44.9 Chronic obstructive pulmonary disease, unspecified; F41.9 Anxiety disorder, unspecified; F32.9 Major depressive disorder, single episode, unspecified; F17.210 Nicotine dependence, cigarettes, uncomplicated; Z90.710 Acquired absence of both cervix and uterus; Z90.49 Acquired absence of other specified parts of digestive tract; Z79.899 Other long term (current) drug therapy; Z72.89 Other problems related to lifestyle; Z88.0 Allergy status to penicillin; Z88.1 Allergy status to other antibiotic agents; Z88.5 Allergy status to narcotic agent; Z88.8 Allergy status to other drugs, medicaments and biological substances
CPT/HCPCS: 99212; G0463

== ENCOUNTER → 2020-04-16 | Outpatient (CLI) | payer MEDICAID ==
[2017-01-09 11:05] VITALS: BP 133/74
--- NOTE | 2020-04-16 16:44 | KCIC ---
MRI of the lumbar spine without contrast 04/16/2020 CLINICAL HISTORY: Low back pain which radiates down the left leg. TECHNIQUE: Unenhanced T1-weighted and T2-weighted sagittal and axial and inversion recovery sagittal images of the lumbar spine were obtained. FINDINGS: Comparison study is dated 11/30/2017. The alignment of the lumbar vertebrae is within normal limits. Degenerative signal changes are seen involving all of the disks of the lumbar spine. Degenerative signal changes are seen within the marrow surrounding these discs. Loss of height of the L5-S1 disc is noted. A 2.4 cm hemangioma is seen involving the S1 vertebral body. The conus medullaris is normal morphology, position, and signal characteristics. At the L1-2, L2-3, and L3-4 disc spaces there are minimal generalized disc bulges. Degenerative changes are seen involving the facet joints bilaterally. There is mild ligamentum flavum hypertrophy bilaterally. These findings do not result in significant central spinal canal or neural foraminal stenosis. At the L4-5 disc space there is a mild generalized disc bulge. This is eccentric to the right. Superimposed on this disc bulge is a right paracentral focal disc protrusion. This measures 3 mm in AP diameter. Degenerative changes are seen involving the facet joints bilaterally. There is mild ligamentum flavum hypertrophy bilaterally. These findings when combined do not result in significant central spinal canal or neural foraminal stenosis. At the L5-S1 disc space there is a mild to moderate generalized disc bulge. Degenerative changes are seen involving the facet joints bilaterally. There is moderate ligamentum flavum hypertrophy bilaterally. These findings when combined do not result in significant central spinal canal or neural foraminal stenosis. Since the previous examination there has been no significant interval change. IMPRESSION: The changes of degenerative disc disease are seen throughout the lumbar spine. These findings do not result in significant central spinal canal or neural foraminal stenosis. Electronically signed by: Isaac Little MD (04/16/2020 12:37 PM) [id number]
== END | disposition home or self-care (01) ==
LOC: KCIC MRI 10:47
PROVIDERS: ATTEND Anesthesiology
DX: M51.16 Intervertebral disc disorders with radiculopathy, lumbar region (principal); I10 Essential (primary) hypertension; J44.9 Chronic obstructive pulmonary disease, unspecified; M19.90 Unspecified osteoarthritis, unspecified site; F41.9 Anxiety disorder, unspecified; F32.9 Major depressive disorder, single episode, unspecified; F17.210 Nicotine dependence, cigarettes, uncomplicated; Z90.710 Acquired absence of both cervix and uterus; Z90.49 Acquired absence of other specified parts of digestive tract; Z98.890 Other specified postprocedural states; Z88.0 Allergy status to penicillin; Z88.1 Allergy status to other antibiotic agents; Z88.5 Allergy status to narcotic agent; Z88.8 Allergy status to other drugs, medicaments and biological substances; Z79.899 Other long term (current) drug therapy
CPT/HCPCS: 72148

== ENCOUNTER → 2020-07-08 | Outpatient (CLI) | payer MEDICAID ==
[2017-01-09 11:05] VITALS: BP 133/74
[~2020-07-08] MED LIST changes: +IBUP-1815 PO; -IBUP100O25 PO; -LISI-338 PO; +LISI-517 PO; -SALM50DI IH; +SALM50DI2 IH
--- NOTE | 2020-07-08 12:53 | KCIC ---
US BREAST LT Clinical Indication: Reason: 6 Month follow up Left Breast / Spl. Instructions: / History: Comparison: Bilateral breast ultrasound and bilateral diagnostic mammogram, December 24, 2019. TECHNIQUE: Real-time ultrasound imaging of the left breast is performed. Findings: At the 3:00 position 12 cm from the nipple there is stable well-circumscribed, parallel hypoechoic le virginie measuring 6 x 2 mm. Color Doppler demonstrates a feeding vessel on the side, and finding is prob ably an intramammary lymph node. There are no abnormal axillary lymph nodes. IMPRESSION: 1. Stable probable intramammary lymph node at the 3:00 position 12 cm from the nipple. Recommend pat ient return to routine mammogram screening. 2. BI-RADS Category 2, benign findings. Electronically signed by: Kin Mosher MD (07/08/2020 12:51 PM) [email or web address]
== END ==
LOC: KCIC US 12:17
PROVIDERS: ATTEND Nurse Practitioner Family
DX: N64.4 Mastodynia (principal)
CPT/HCPCS: 76641

== ENCOUNTER → 2020-07-12 | Outpatient (CLI) | payer MEDICAID ==
[2017-01-09 11:05] VITALS: BP 133/74
--- NOTE | 2020-07-12 15:49 | KCIC ---
PROCEDURE: XR HAND_LEFT 3 VIEWS STUDY DATE: 07/12/2020 CLINICAL INDICATION / HISTORY: Reason: LEFT HAND THUMB PAIN X2 WEEKS, DISTAL JOINT / Spl. Instruction s: / History: . TECHNIQUE: PA, lateral and oblique views of the left hand. COMPARISON: None FINDINGS: There is a lucency through the distal phalanx of the thumb without cortical interruption th at could be a prominent nutrient foramen but a nondisplaced hairline fracture can appear similar. No fracture or dislocation is otherwise identified. The bone density is normal. The joint spaces are fidencio ntained, and there are no erosions to suggest an inflammatory arthropathy. The soft tissues are unrem arkable. IMPRESSION: Lucency at the base of the distal phalanx left thumb could be a prominent nutrient forame n but if there is clinical concern for fracture, further imaging by MRI or CT could be considered or alternatively, follow-up radiograph after splinting to assess for healing response. Otherwise no acut e osseous abnormality. Electronically signed by: Bandar Trujillo MD (07/12/2020 3:46 PM) [id number]
== END ==
LOC: KCIC 10:19
PROVIDERS: ATTEND Nurse Practitioner Family
DX: M79.645 Pain in left finger(s) (principal)
CPT/HCPCS: 73130

== ENCOUNTER → 2020-11-16 | Outpatient (CLI) | payer MEDICAID ==
[2017-01-09 11:05] VITALS: BP 133/74
--- NOTE | 2020-11-16 17:39 | KCIC ---
KNEE 3 VIEWS LEFT Clinical Indication: Reason: Left knee pain. / Spl. Instructions: Anterior knee pain after moving cou ch, swelling. Comparison: None. Findings: There is no acute fracture or dislocation. There is mild medial compartment narrowing. Moderate mcclellan lar osteophyte superiorly. The mineralization is normal. The patella is in anatomic position. There i s no soft tissue abnormality. There is no joint effusion. IMPRESSION: 1. No acute fracture. 2. Mild arthropathy. Electronically signed by: Kin Mosher MD (11/16/2020 5:36 PM) [id number]
== END ==
LOC: KCIC 12:58
PROVIDERS: ATTEND Nurse Practitioner Family
DX: M17.12 Unilateral primary osteoarthritis, left knee (principal); M25.762 Osteophyte, left knee
CPT/HCPCS: 73562

== ENCOUNTER → 2020-12-21 | Outpatient (CLI) | payer MEDICAID ==
[2017-01-09 11:05] VITALS: BP 133/74
[~2020-12-21] MED LIST changes: +IBUP-1739 PO; -IBUP-1815 PO
--- NOTE | 2020-12-21 14:32 | KCIC ---
MR LUMBAR SPINE [id number] History: Reason: LEFT LUMBAR RADICULOPATHY / Spl. Instructions: / History: Left leg pain for at leas t 2 yrs. LBP with BLE numbness. Technique: Multiplanar, multi sequential MR imaging was performed of the lumbar spine. Comparison: April 16, 2020 Findings: Normal vertebral body height and alignment. No fracture. Conus terminates at the normal location. No evidence of nerve root clumping. L1-L2: No canal or neuroforaminal narrowing. L2-L3: No canal or neuroforaminal narrowing. L3-L4: No canal or neuroforaminal narrowing. Mild facet arthropathy. L4-L5: Minimal disc bulge. Moderate facet arthropathy. No canal narrowing. Mild bilateral neuroforam inal narrowing, right greater than left. L5-S1: Central disc protrusion with annular fissure. Moderate facet arthropathy. No canal narrowing. Moderate right and mild left neuroforaminal narrowing, unchanged. Compared the prior examination the degenerative findings are similar. Impression: 1. Multilevel lumbar spondylosis most prominent L4-5 and L5-S1, unchanged compared to prior. 2. Neuroforaminal narrowing L4-5 and L5-S1, unchanged. Electronically signed by: Tulio Awad DO (12/21/2020 2:30 PM) [id number]
== END ==
LOC: KCIC MRI 12:21
PROVIDERS: ATTEND Orthopaedic Surgery
DX: M47.27 Other spondylosis with radiculopathy, lumbosacral region (principal); M51.17 Intervertebral disc disorders with radiculopathy, lumbosacral region; M48.07 Spinal stenosis, lumbosacral region
CPT/HCPCS: 72148

== ENCOUNTER → 2021-02-04 | Outpatient (CLI) | payer MEDICAID ==
[2017-01-09 11:05] VITALS: BP 133/74
[~2021-02-04] MED LIST changes: +ACET500P23 PO; +CYCL10TA19 PO; -CYCL10TA2 PO; +IBUP800T19 PO; -LISI-517 PO; -LISI1TAB23 PO; +LISI1TAB35 PO; +LISI5TAB15 PO; +LORA0.5T96 PO; +TIZA-75 PO; -TIZA4TAB2 PO
--- NOTE | 2021-02-07 09:38 | CARD ---
MR#: [id number] Date of Study: 02/04/2021 Ordering Physician: NORMA LOZA, Referring Physician: NORMA LOZA, Tech: APPROVED REPORT EXAM: Two-dimensional and M-mode echocardiogram with Doppler and color Doppler. INDICATION RISK FACTORS Hypertension Obesity Smoking 2D DIMENSIONS RVDd3.1 (2.9-3.5cm)Left Atrium(2D)3.3 (1.6-4.0cm) IVSd1.2 (0.7-1.1cm)Aortic Root(2D)3.3 (2.0-3.7cm) LVDd3.3 (3.9-5.9cm)LVOT Diameter2.3 (1.8-2.4cm) PWd1.3 (0.7-1.1cm)LVDs1.7 (2.5-4.0cm) FS (%) 50.4 %SV37.3 ml LVEF(%)82.7 (>50%) Aortic Valve AoV Peak Dion.143.1cm/sAoV VTI32.2cm AO Peak GR.8.2mmHgLVOT Peak Dion.133.9cm/s AO Mean GR.4mmHgAVA (VMAX)3.87cm2 Mitral Valve MV E Dylggyvi746.8cm/sMV DECEL [id number] MV A Neemkuvf87.9cm/sE/A Ratio1.1 Pulmonary Valve PV Peak Myyzymwv98.1cm/s Tricuspid Valve TR P. Osjnoiet185yt/sTR Peak Gr.27mmHg LEFT VENTRICLE The left ventricle is normal size. There is mild concentric left ventricular hypertrophy. The left ve ntricular systolic function is normal. Estimated ejection fraction 65%. There is normal LV segmental wall motion. The left ventricular diastolic function and filling is normal for age. RIGHT VENTRICLE The right ventricle is normal size. There is normal right ventricular wall thickness. The right ventr icular systolic function is normal. ATRIA The left atrium size is normal. The right atrium size is normal. The interatrial septum is intact wit h no evidence for an atrial septal defect or patent foramen ovale as noted on 2-D or Doppler imaging. AORTIC VALVE The aortic valve is normal in structure and function. Doppler and Color Flow revealed no significant aortic regurgitation. There is no significant aortic valvular stenosis. MITRAL VALVE The mitral valve is normal in structure and function. There is no evidence of mitral valve prolapse. There is no mitral valve stenosis. Doppler and Color-flow revealed mild mitral regurgitation. TRICUSPID VALVE The tricuspid valve is normal in structure and function. Doppler and Color Flow revealed trace to mil d tricuspid regurgitation. Estimated PAP 30 mmHg. There is no tricuspid valve stenosis. PULMONIC VALVE The pulmonary valve is normal in structure and function. Doppler and Color Flow revealed trace pulmon ic valvular regurgitation. GREAT VESSELS The aortic root is normal in size. The ascending aorta is normal in size. The IVC is normal in size a nd collapses >50% with inspiration. PERICARDIAL EFFUSION There is no evidence of significant pericardial effusion. Critical Notification Critical Value: No <Conclusion> The left ventricular systolic function is normal. Estimated ejection fraction 65%. There is normal LV segmental wall motion. Mild mitral regurgitation. Trace to mild tricuspid regurgitation. Estimated PAP 30 mmHg. There is no evidence of significant pericardial effusion. Signed by : Norma Loza, Electronically Approved : 02/07/2021 09:38:37
== END ==
LOC: ECHO 14:01
PROVIDERS: ATTEND Internal Medicine Cardiovascular Disease
DX: I08.1 Rheumatic disorders of both mitral and tricuspid valves (principal); R55 Syncope and collapse
CPT/HCPCS: 93306

== ENCOUNTER → 2021-02-23 | Outpatient (CLI) | payer MEDICAID ==
[2017-01-09 11:05] VITALS: BP 133/74
[~2021-02-23] MED LIST changes: -ACET500P23 PO; -CYCL10TA19 PO; +CYCL10TA2 PO; -IBUP800T19 PO; +LISI-517 PO; +LISI1TAB23 PO; -LISI1TAB35 PO; -LISI5TAB15 PO; -LORA0.5T96 PO; -TIZA-75 PO; +TIZA4TAB2 PO
--- NOTE | 2021-02-23 17:48 | RAD ---
MR#: [id number] Date of Study: 02/23/2021 Ordering Physician: NORMA LOZA, Referring Physician: NORMA LOZA, Tech: Aris Collado MBA, RDMS, RVT, RDCS, RTR APPROVED REPORT Patient Location: OUT-PATIENT Indications Rest Pain:Bilaterally VELOCITY AND DOPPLER WAVEFORM ANALYSIS RIGHT cm/secWaveformSeverity LEFT cm/secWaveform Severity dCFA 138.0TriphasicdCFA 157.0Triphasic Prof Fem Art. 57.0TriphasicProf Fem Art. 57.0Biphasic Fem Art Prox. 126.0TriphasicFem Art Prox. 140.0Triphasic Fem Art Mid. 119.0TriphasicFem Art Mid. 142.0Triphasic Fem Art Dist. 105.0TriphasicFem Art Dist. 148.0Triphasic Pop Art(Fossa) 112.0TriphasicPop Art(AK) 124.0Triphasic HEAD OF ART Prox. 102.0TriphasicPTA Prox. 116.0Monophasic HEAD OF ART Dist. 106.0TriphasicPTA Dist. 31.0Monophasic Per Art Mid. 84.0BiphasicPer Art Mid. 100.0Biphasic MICHAEL Prox. 105.0BiphasicATA Prox. 89.0Triphasic DPA 83BiphasicDPA 72Biphasic Findings Grayscale images showed mild atherosclerotic plaque involving the right popliteal, left common femora l and superficial femoral arteries. Spectral waveform and color Doppler analysis showed slightly inc reased velocities in the left common femoral and superficial femoral arteries with triphasic waveform s. The left posterior tibial artery showed monophasic waveforms suggestive of moderate diffuse disea se. No significant flow-limiting lesions were noted. Critical Notification Critical Value: No <Conclusion> No significant flow-limiting peripheral artery stenosis was noted with three-vessel runoff bilaterall y. Signed by : Norma Loza, Electronically Approved : 02/23/2021 17:48:22
== END ==
LOC: US 12:05
PROVIDERS: ATTEND Internal Medicine Cardiovascular Disease
DX: I70.203 Unspecified atherosclerosis of native arteries of extremities, bilateral legs (principal)
CPT/HCPCS: 93925

== ENCOUNTER → 2021-03-01 | Outpatient (CLI) | payer MEDICAID ==
[2017-01-09 11:05] VITALS: BP 133/74
--- NOTE | 2021-03-01 11:44 | CARD ---
MR#: [id number] Date of Study: 03/01/2021 Ordering Physician: NORMA LOZA, Referring Physician: NORMA LOZA, Tech: APPROVED REPORT PROCEDURE: Successful implantation of Biotronik Biomonitor III loop recorder INDICATIONS: Syncope of uncertain etiology PROCEDURE DETAILS: An informed consent was obtained from patient. Patient was brought to the procedure suite and her le ft chest and shoulder were prepped and draped in the usual fashion. 20 mL of 2% lidocaine was infilt rated into the skin and subcutaneous tissues for local anesthesia. An incision was made in the left third intercostal space 1 inch from midsternal line and using the introducer and deployer provided wi th the kit, a Biotronik Biomonitor III loop recorder serial number [id number] was placed in the subcuta neous tissue. The incision was closed in one layer. Hemostasis was secured. Patient tolerated the procedure well. There were no immediate complications. CONCLUSION: Successful implantation of Biotronik Biomonitor III loop recorder for syncope of uncertain etiology t o rule out any significant arrhythmias. Signed by : Norma Loza, Electronically Approved : 03/01/2021 11:44:40
== END | disposition home or self-care (01) ==
LOC: LINQ 10:53
PROVIDERS: ATTEND Internal Medicine Cardiovascular Disease
DX: R55 Syncope and collapse (principal); I10 Essential (primary) hypertension; J44.9 Chronic obstructive pulmonary disease, unspecified; M19.90 Unspecified osteoarthritis, unspecified site; F41.9 Anxiety disorder, unspecified; F32.9 Major depressive disorder, single episode, unspecified; F17.210 Nicotine dependence, cigarettes, uncomplicated; Z90.49 Acquired absence of other specified parts of digestive tract; Z90.710 Acquired absence of both cervix and uterus; Z98.890 Other specified postprocedural states; Z79.899 Other long term (current) drug therapy; Z88.0 Allergy status to penicillin; Z88.1 Allergy status to other antibiotic agents; Z88.5 Allergy status to narcotic agent; Z88.8 Allergy status to other drugs, medicaments and biological substances
CPT/HCPCS: 33285; C1764

== ENCOUNTER 2021-03-06 12:30 | Emergency (ER) | payer MEDICAID ==
[~2021-03-06] VITALS: Ht 167.6 cm; Wt 86.8 kg
[~2021-03-06 12:30] MED LIST changes: +CYCL10TA19 PO; -CYCL10TA2 PO; -LISI-517 PO; -LISI1TAB23 PO; +LISI1TAB35 PO; +LISI5TAB15 PO; +TIZA-75 PO; -TIZA4TAB2 PO
--- NOTE | 2021-03-06 13:04 | PHYS DOC ---
Past Medical History Past Medical History: Anxiety, Depression, GERD, High Cholesterol, Hypertension Additional Past Medical Histor: CHRONIC BACK PAIN, DYSPHAGIA, INSOMNIA, drug seeking behavior Past Surgical History: Appendectomy, Cholecystectomy, , Hysterectomy Additional Past Surgical Histo: cataract, ROTATOR CUFF REPAIR Smoking Status: Current Every Day Smoker Alcohol Use: None Drug Use: Marijuana General Adult EDM: Chief Complaint: ABDOMINAL PAIN HPI: HPI: Patient is a 60 year old female with history of GERD, HTN, HLD, anxiety/depression who presents with epigastric pain. States that she has had on and off pain for the past year. Previously painful episodes would be associated with syncope, so has undergone a cardiac work-up and has had echocardiogram and an implanted loop recorder. Today the pain came on shortly after eating at about 10 AM. States the pain is often postprandial. It is sharp. Was unrelenting. Does not radiate. Associated with nausea and vomiting. No hematemesis. No recent bloody stools or melena. Has not had any CT imaging of the abdomen/pelvis, or endoscopy during this. She is currently on omeprazole for GERD. Review of Systems: Review of Systems: Constitutional: Denies fever or chills. [] Eyes: Denies change in visual acuity. [] HENT: Denies nasal congestion or sore throat. [] Respiratory: Denies cough or shortness of breath. [] Cardiovascular: Denies chest pain or edema. [] GI: Denies abdominal pain, nausea, vomiting, bloody stools or diarrhea. [] : Denies dysuria. [] Musculoskeletal: Denies back pain or joint pain. [] Integument: Denies rash. [] Neurologic: Denies headache, focal weakness or sensory changes. [] Endocrine: Denies polyuria or polydipsia. [] Lymphatic: Denies swollen glands. [] Psychiatric: Denies depression or anxiety. [] Heart Score: C/O Chest Pain: No Risk Factors: Risk Factors: DM, Current or recent (<one month) smoker, HTN, HLP, family history of CAD, obesity. Risk Scores: Score 0 - 3: 2.5% MACE over next 6 weeks - Discharge Home Score 4 - 6: 20.3% MACE over next 6 weeks - Admit for Clinical Observation Score 7 - 10: 72.7% MACE over next 6 weeks - Early Invasive Strategies Allergies: Allergies: Allergies Coded Allergies Type Severity Reaction Last Updated Verified lithium Allergy Severe 08/25/14 Yes alprazolam Allergy Intermediate 12/14/17 Yes hydrocodone Allergy Intermediate Rash 08/25/14 Yes escitalopram Allergy Unknown Nausea and Vomiting 12/14/17 Yes Penicillins Adverse Reaction Intermediate NAUSEA/VOMITING 12/14/17 Yes amoxicillin Adverse Reaction Intermediate NAUSEA AND VOMITING 12/14/17 No codeine Adverse Reaction Intermediate NAUSEA AND VOMITING 12/14/17 No Physical Exam: PE: Constitutional: Well developed, well nourished, no acute distress, non-toxic appearance. [] HENT: Normocephalic, atraumatic, bilateral external ears normal, oropharynx moist, no oral exudates, nose normal. [] Eyes: PERRLA, EOMI, conjunctiva normal, no discharge. [] Neck: Normal range of motion, no tenderness, supple, no stridor. [] Cardiovascular:Heart rate regular rhythm, no murmur [] Lungs & Thorax: Bilateral breath sounds clear to auscultation [] Abdomen: focal epigastric tenderness to palpation, no guarding or rebound. Skin: Warm, dry, no erythema, no rash. [] Back: No tenderness, no CVA tenderness. [] Extremities: No tenderness, no cyanosis, no clubbing, ROM intact, no edema. [] Neurologic: Alert and oriented X 3, normal motor function, normal sensory function, no focal deficits noted. [] Psychologic: Affect normal, judgement normal, mood normal. [] EKG: EKG: SR. no ischemic changes [] Radiology/Procedures: Radiology/Procedures: [] Impression: [facility] [address] [place], [place] [id number] IMAGING REPORT Signed PATIENT: CALVIN HARPER ACCOUNT: [id number] : 1960 LOCATION: ER AGE: 60 SEX: F EXAM STATUS: REG ER ORD. PHYSICIAN: DARRICK LOPEZ MD REASON: epigastric pain, intermittent, worse with food PROCEDURE: CT ABD PELV W/ IV CONTRST ONLY CT ABDOMEN+PELVIS W History: epigastric pain, intermittent, worse with food Comparison: None. Technique: After administration of intravenous contrast, helical CT of the abdomen and pelvis was performed from the lung bases through the ischial tuberosities. Coronal and sagittal reconstructions were obtained. 60 mL of Omnipaque 300 were used. One or more of the following dose reduction techniques were utilized: Automated exposure control (AEC), Adjustment of mA and/or kV according to patient size, Use of iterative reconstruction technique such as ASiR, CT scan done according to ALARA and image gently/image wisely Abdomen Findings: The visualized lung bases are clear. The liver, pancreas, spleen, and bilateral adrenal glands are normal. Cholecystectomy. Dilated intrahepatic and extrahepatic bile ducts, with common bile duct measuring 21 mm in diameter. No radiopaque stone is seen. Symmetric renal enhancement. There is no focal renal mass. There is no hydronephrosis. Normal caliber small bowel. Duodenal diverticulum. The visualized loops of large bowel are normal. There is no evidence of bowel obstruction. Appendix is not seen. There is no free fluid. There is no mesenteric or retroperitoneal adenopathy. Moderate aortoiliac atherosclerotic The abdominal aorta is normal in caliber. Pelvis Findings: Urinary bladder is decompressed. Hysterectomy. No pelvic free fluid. There is no pelvic or inguinal adenopathy. There is no acute bony abnormality. IMPRESSION: Cholecystectomy. Dilated intrahepatic and extrahepatic bile ducts, with CBD m easuring 21 mm in diameter. While biliary dilatation can often be seen post cholecystectomy, correlation with lab values is advised as it would be difficult to exclude stricture or nonopaque stone. No prior imaging available for comparison. Electronically signed by: Jose Douglass MD (03/06/2021 2:28 PM) [facility] DICTATED and SIGNED BY: JOSE DOUGLASS MD DATE: 03/06/21 [id number] 0 Course & Med Decision Making: Course & Med Decision Making Pertinent Labs and Imaging studies reviewed. (See chart for details) Patient is 60-year-old female who presents with a year of intermittent epigastric pain that appears to be postprandial in nature. On arrival is afebrile, hemodynamically stable. No acute distress. Does have focal epigastric tenderness to palpation on exam. She has not had any CT imaging or abdominal work-up for her symptoms. We will check CBC, CMP, lipase, UA, CT abdomen/pelvis. DDx includes pancreatitis, choledocholithiasis, pancreatic mass, other abdominal malignancy, nonbleeding peptic ulcer disease, lower esophageal mass/inflammation. 1306 CT shows a dilated common bile duct, without evidence of stone or pancreatic mass. No evidence of obstruction on labs. Could potentially be sphincter of Oddi dysfunction. As she is now pain-free and has no laboratory abnormalities, no obvious surgical process on her CT, feel she can be safely followed up as an outpatient. I have suggested that she follow-up with a GI specialist. She will follow-up with her PCP and I will give her contact information for the GI office, although she may need a referral. [address] Disclaimer: Dragon Disclaimer: This electronic medical record was generated, in whole or in part, using a voice recognition dictation system. Departure Departure Impression: Primary Impression: Epigastric pain Additional Impression: Common bile duct dilatation Disposition: 01 HOME / SELF CARE / HOMELESS Condition: STABLE Referrals: ABBY PULLIAM APRN (PCP) Schedule follow-up appointment this week SHIREEN LUNDBERG MD Call to see if you can schedule an appointment with a GI specialist. You may need a referral from your primary care doctor. Additional Instructions: I think that you will need to see a GI specialist. Please follow with your primary care doctor to help arrange for this. You can also try calling the phone number attached for a GI specialist, Dr. Lundberg. If your pain worsens, you have high fevers, shaking chills, persistent nausea/vomiting, or other new/concerning symptoms arise you can always return to the emergency department for reevaluation. DARRICK LOPEZ MD Mar 06, 2021 13:04
[2021-03-06 13:17] LABS: BASO # 0.1 x10^3/uL (0.0-0.2); BASO % 1 % (0-3); EOS # 0.2 x10^3/uL (0.0-0.7); EOS % 2 % (0-3); HEMATOCRIT 32.6 % (36.0-47.0); HEMOGLOBIN 11.3 g/dL (12.0-15.5); LYMPH # 2.1 x10^3/uL (1.0-4.8); LYMPH % 26 % (24-48); MEAN CORPUSCULAR HEMOGLOBIN 37 pg (25-35); MEAN CORPUSCULAR HGB CONC 35 g/dL (31-37); MEAN CORPUSCULAR VOLUME 106 fL (79-100); MONO # 0.9 x10^3/uL (0.0-1.1); MONO % 10 % (0-9); NEUT # 4.9 x10^3/uL (1.8-7.7); NEUT % 60 % (31-73); PLATELET COUNT 295 x10^3/uL (140-400); RED BLOOD COUNT 3.06 x10^6/uL (3.50-5.40); RED CELL DISTRIBUTION WIDTH 13.4 % (11.5-14.5); WHITE BLOOD COUNT 8.2 x10^3/uL (4.0-11.0)
[2021-03-06] MEDS ORDERED: IOHEXOL 300 MG/ML 100ML VIAL. IV ONE (13:30)
[2021-03-06 13:32] LABS: CREATININE 1.2 mg/dL (0.6-1.0); GFR 45.5; POTASSIUM 4.3 mmol/L (3.5-5.1)
[2021-03-06 13:37] LABS: ALBUMIN 3.5 g/dL (3.4-5.0); ALBUMIN/GLOBULIN RATIO 0.9 (1.0-1.7); TOTAL BILIRUBIN 0.7 mg/dL (0.2-1.0); TOTAL PROTEIN 7.3 g/dL (6.4-8.2)
[2021-03-06] MEDS ORDERED: CONTRAST GIVEN. MC PRN (13:45)
[2021-03-06 13:55] LABS: BILIRUBIN,URINE NEGATIVE (NEG); CLARITY,URINE CLEAR; COLOR,URINE YELLOW; NITRITE,URINE NEGATIVE (NEG); PROTEIN,URINE NEGATIVE (NEG-TRACE)
[2021-03-06 14:04] LABS: BACTERIA,URINE 0 /HPF (0-FEW); RBC,URINE 0 /HPF (0-2); WBC,URINE 0 /HPF (0-4)
--- NOTE | 2021-03-06 14:31 | RAD ---
CT ABDOMEN+PELVIS W History: epigastric pain, intermittent, worse with food Comparison: None. Technique: After administration of intravenous contrast, helical CT of the abdomen and pelvis was per formed from the lung bases through the ischial tuberosities. Coronal and sagittal reconstructions wer e obtained. 60 mL of Omnipaque 300 were used. One or more of the following dose reduction techniques were utilized: Automated exposure control (AEC), Adjustment of mA and/or kV according to patient size , Use of iterative reconstruction technique such as ASiR, CT scan done according to ALARA and image g ently/image wisely Abdomen Findings: The visualized lung bases are clear. The liver, pancreas, spleen, and bilateral adrenal glands are normal. Cholecystectomy. Dilated intrahepatic and extrahepatic bile ducts, with common bile duct measuring 21 mm in diameter. No radiopaque stone is seen. Symmetric renal enhancement. There is no focal renal mass. There is no hydronephrosis. Normal caliber small bowel. Duodenal diverticulum. The visualized loops of large bowel are normal. Th ere is no evidence of bowel obstruction. Appendix is not seen. There is no free fluid. There is no mesenteric or retroperitoneal adenopathy. Moderate aortoiliac atherosclerotic The abdominal aorta is normal in caliber. Pelvis Findings: Urinary bladder is decompressed. Hysterectomy. No pelvic free fluid. There is no pelvic or inguinal a denopathy. There is no acute bony abnormality. IMPRESSION: Cholecystectomy. Dilated intrahepatic and extrahepatic bile ducts, with CBD measuring 21 mm in diamet er. While biliary dilatation can often be seen post cholecystectomy, correlation with lab values is a dvised as it would be difficult to exclude stricture or nonopaque stone. No prior imaging available f or comparison. Electronically signed by: Zachary Douglass MD (03/06/2021 2:28 PM) [facility]
[2021-03-06 15:10] VITALS: BP 135/56
--- NOTE | 2021-03-07 01:12 | EKG ---
[facility] [address] [place] [address] Test Date: 2021-03-06 Test Time: 13:18:23 Pat Name: CALVIN HARPER Department: Room: Gender: F Facilities Manager: : 1960 Requested By: DARRICK LOPEZ Order Number: [id number] Reading MD: Abad Almeida MD Measurements Intervals Cascilla Rate: 75 P: 20 NM: 156 QRS: -22 QRSD: 78 T: 7 QT: 374 QTc: 420 Interpretive Statements SINUS RHYTHM INCOMPLETE RBBB Electronically Signed On 03-07-2021 8:48:22 CDT by Abad Almeida MD
[2021-03-17] MEDS ORDERED: ACET500P23 PO (17:55)
[2021-03-17] MEDS ORDERED: IBUP800T19 PO (17:55)
== END 2021-03-06 16:12 | disposition home or self-care (01) ==
LOC: ER 12:30
DX: R10.13 Epigastric pain (principal); K83.8 Other specified diseases of biliary tract; K21.9 Gastro-esophageal reflux disease without esophagitis; E78.00 Pure hypercholesterolemia, unspecified; I10 Essential (primary) hypertension; G89.29 Other chronic pain; Z76.5 Malingerer [conscious simulation]; F17.200 Nicotine dependence, unspecified, uncomplicated; Z90.89 Acquired absence of other organs; Z90.49 Acquired absence of other specified parts of digestive tract; Z90.710 Acquired absence of both cervix and uterus; Z88.0 Allergy status to penicillin; Z88.1 Allergy status to other antibiotic agents; Z88.5 Allergy status to narcotic agent; Z88.8 Allergy status to other drugs, medicaments and biological substances
CPT/HCPCS: 36415; 74177; 80053; 81001; 83690; 85025; 93005; 99285; Q9967

== ENCOUNTER 2021-03-17 13:33 | Day surgery (SDC) | payer MEDICAID ==
[~2021-03-17] VITALS: Ht 167.6 cm; Wt 84.0 kg
[~2021-03-17 13:33] MED LIST changes: +CLINDAMYCIN 900MG PREMIX 50 ML IV PRN; +HYDROmorphone 2 MG/ML VIAL IVP PRN; +IV RINGERS,LACTATED 1000ML 1,000 ML IV SCH; +MORPHINE SULFATE 2 MG/ML INJ. IVP PRN; +PROCHLORPERAZINE 10 MG/2 ML VIAL. IVP PRN; +fentaNYL PF VIAL 100 MCG/2 ML VIAL IVP PRN
[2021-03-17 14:01] VITALS: BP_SYST 132
[2021-03-17] MEDS ORDERED: LIDOCAINE 1% PF 30 ML VIAL. ONE (16:30)
[2021-03-17] MEDS ORDERED: BACITRACIN TOPICAL OINT PACKET. TP ONE ×2 (16:32→16:35)
[2021-03-17] MEDS ORDERED: PROPOFOL 10 MG/ML (20ML) VIAL. IV ONE (16:54)
[2021-03-17] MEDS ORDERED: LIDOCAINE 2% PF 5 ML VIAL. ONE (16:54)
[2021-03-17] MEDS ORDERED: DEXAMETHASONE SOD PHOS 4 MG/ML VIAL ONE (17:16)
[2021-03-17] MEDS ORDERED: ONDANSETRON PF 4 MG/2 ML VIAL. ONE (17:16)
[2021-03-17] MEDS ORDERED: KETOROLAC 30 MG/ML VIAL. ONE ×2 (17:31)
[2021-03-17] MEDS ORDERED: SEVOFLURANE 31 TO 60 MINUTES. IH ONE (17:31)
[2021-03-17] MEDS ORDERED: fentaNYL PF VIAL 100 MCG/2 ML VIAL ONE (17:54)
[2021-03-17] MEDS ORDERED: IBUP800T19 PO (17:55)
[2021-03-17] MEDS ORDERED: ACET500P23 PO (17:55)
[2021-03-17] MEDS: fentaNYL PF VIAL 100 MCG/2 ML VIAL IVP PRN ×2 (17:56→18:00)
[2021-03-17] MEDS ORDERED: ACETAMINOPHEN 500 MG TABLET PO ONE (18:15)
[2021-03-17 18:20] VITALS: BP 116/64
--- NOTE | 2021-03-21 23:02 | PDOC4 ---
OPERATIVE NOTE Date: Date: Mar 17, 2021 Pre-Op Diagnosis: Left trigger thumb Post-Op Diagnosis: Same Procedure Performed: Release of left trigger thumb, CPT 80668 x one unit Surgeon: Maria Eugenia Roche MD Anesthesia Type: MAC and local Blood Loss: 5 mL Specimans Obtained: None Findings: See op note Complications: None Operative Note: Indication This is a patient with a diagnosis of trigger thumb tenosynovitis which has not responded to conservative management with splinting, activity modification, and steroid injection. The patient is aware of the potential benefits, risks, and alternatives of this surgery including the risks of bleeding, infection, injury to the surrounding nerves/vessels, tendon rupture, incomplete release, need for revision procedures. She understood the risks and desired to proceed. Procedure The patient was brought to the operating room where time-out was performed to identify the patient and the appropriate procedure. Monitored sedation was administered by the anesthesia team. The left upper extremity was prepped and draped in the usual sterile fashion after a tourniquet was applied to the upper arm. Tourniquet pressure was applied with exsanguination, and a sub-centimeter transverse incision was made just distal to the palmar digital crease of the thumb directly centered over the palmar aspect of the digit. Blunt dissection was carried out through the soft tissue to the level of tendon sheath. The neurovascular bundle was identified and preserved. With proximal and distal re traction, a scalpel was used to incise the A-1 meagan sheath longitudinally. The incision was started proximally, allowing progressive tension on the distal thumb to gain full extension to complete the release. A right angle clamp was used to elevate the flexor pollicis longus tendon out of the wound. There was no surrounding pathology therefore the tendon was placed back in its anatomic position. Successful completion of the release was deemed adequate by gaining full extension of the digit. The wound was irrigated. Hemostasis was achieved. The skin was closed using 4-0 nylon interrupted horizontal mattress sutures. Tourniquet pressure was released and the total tourniquet time was noted. A simple dry dressing was applied to the surgical site. The patient tolerated the procedure well and was transferred to the PACU in stable condition. MARIA EUGENIA ROCHE MD Mar 21, 2021 23:02
[2021-03-31] MEDS ORDERED: LORA0.5T96 PO (09:37)
== END 2021-03-17 18:40 | disposition home or self-care (01) ==
LOC: SURG 13:33
PROVIDERS: ATTEND Plastic Surgery
DX: M65.312 Trigger thumb, left thumb (principal); I10 Essential (primary) hypertension; J44.9 Chronic obstructive pulmonary disease, unspecified; K21.9 Gastro-esophageal reflux disease without esophagitis; M19.90 Unspecified osteoarthritis, unspecified site; F41.9 Anxiety disorder, unspecified; F32.9 Major depressive disorder, single episode, unspecified; F17.210 Nicotine dependence, cigarettes, uncomplicated; Z87.440 Personal history of urinary (tract) infections; Z90.49 Acquired absence of other specified parts of digestive tract; Z90.710 Acquired absence of both cervix and uterus; Z98.890 Other specified postprocedural states; Z79.899 Other long term (current) drug therapy; Z88.0 Allergy status to penicillin; Z88.1 Allergy status to other antibiotic agents; Z88.5 Allergy status to narcotic agent; Z88.8 Allergy status to other drugs, medicaments and biological substances
CPT/HCPCS: 26055; A4930; A6402; J1100; J1885; J2405; J2704; J3010; J3490; A4223; A4657; A6452

== ENCOUNTER → 2021-03-31 | Day surgery (SDC) | payer MEDICAID ==
[~2021-03-31] VITALS: Ht 167.6 cm; Wt 82.0 kg
[~2021-03-31] MED LIST changes: +ACET500P23 PO; -CLINDAMYCIN 900MG PREMIX 50 ML IV PRN; -HYDROmorphone 2 MG/ML VIAL IVP PRN; +IBUP800T19 PO; +LORA0.5T96 PO; -MORPHINE SULFATE 2 MG/ML INJ. IVP PRN; -PROCHLORPERAZINE 10 MG/2 ML VIAL. IVP PRN; +PROPOFOL 10 MG/ML (20ML) VIAL. IV ONE; -fentaNYL PF VIAL 100 MCG/2 ML VIAL IVP PRN
[2021-03-31 09:23] VITALS: BP 127/78
[2021-03-31 10:51] VITALS: BP 127/69
--- NOTE | 2021-04-05 17:27 | PATHOLOGY ---
[facility] Accession Number: [id number] . 01 Material submitted: . PART A: small bowel - SMALL BOWEL BIOPSY PART B: gastrointestinal site - GASTRIC ANTRUM BIOPSY PART C: esophagus - DISTAL ESOPHAGUS BIOPSY. Modifiers: distal PART D: colon - ASCENDING COLON POLYP BIOPSY. Modifiers: ascending PART E: sigmoid colon - SIGMOID BIOPSY . 01 Clinical history: . EPIGASTRIC PAIN SCREENING EGD WITH COLONOSCOPY . 02 Diagnosis: A. Small bowel biopsy: - Duodenal mucosa without significant pathologic alteration. . B. Stomach "antrum", biopsy: - Gastric antral mucosa with features of reactive gastropathy, arising in a background of mild chronic inflammation. - Negative for active inflammation, intestinal metaplasia, dysplasia, and malignancy. - Negative for Helicobacter pylori. . C. Esophagus "distal", biopsy: - Esophageal squamous and gastric cardia mucosa with features of reflux esophagitis and intestinal metaplasia (Martinez's esophagus). - Negative for dysplasia and malignancy. . D. Large bowel "ascending colon polyp biopsy": - Tubular adenoma; negative for high grade dysplasia and malignancy. . E. Large bowel "sigmoid biopsy": - Large bowel mucosa with focal surface hyperplastic change; negative for dysplasia and malignancy. (MLK/db; 04/04/2021) LBQ 04/05/2021 1612 Local . 02 Electronically signed: . Maggy Johnson MD, Pathologist NPI- [id number] . 01 Gross description: . A. Received in formalin labeled "Mary Mendoza, small bowel biopsy" are multiple hastings-brown soft tissue fragments measuring in aggregate 1.0 x 0.6 x 0.1 cm. The specimen is submitted entirely in A1. . B. Received in formalin labeled "Mary Mendoza, gastric antrum biopsy" are 2 hastings-brown soft tissue fragments measuring in aggregate 0.4 x 0.3 x 0.1 cm. The specimen is submitted entirely in B1. . C. Received in formalin labeled "Mary Mendoza, distal esophagus biopsy" are multiple hastings-brown soft tissue fragments measuring in aggregate 1.0 x 0.3 x 0.1 cm. The specimen is submitted entirely in C1. . D. Received in formalin labeled "Mary Mendoza, ascending colon polyp biopsy" are multiple hastings-brown soft tissue fragments measuring in aggregate 0.6 x 0.3 x 0.1 cm. The specimen is submitted entirely in D1. . E. Received in formalin labeled "Mary Mendoza, sigmoid polyp biopsy" are 2 hastings-brown soft tissue fragments measuring in aggregate 0.7 x 0.3 x 0.1 cm. The specimen is submitted entirely in E1. [place] [place] [facility] 04/02/2021 1111 Local . 02 Microscopic: . Immunohistochemical stain results (properly controlled) Helicobacter pylori (B1) - Negative for organisms . 02 Pathologist provided ICD-10: K29.50, D12.2 . 02 CPT . 072035, 250983, 505150, 683014, 959032, Z46043 Specimen Comment: A courtesy copy of this report has been sent to [phone], [phone] Specimen Comment: [id number] Specimen Comment: Report sent to / DR PULLIAM Performed at: 01 [facility] [address], [place], [place] [id number] MD Victor Manuel Andino MD Phone: [phone] Performed at: 02 [facility] [address] [place], [place] [id number] MD Kit Pierce MD Phone: [phone]
== END | disposition home or self-care (01) ==
LOC: ENDOS 08:58
PROVIDERS: ATTEND Internal Medicine Gastroenterology
DX: Z12.11 Encounter for screening for malignant neoplasm of colon (principal); D12.2 Benign neoplasm of ascending colon; R10.13 Epigastric pain; K64.0 First degree hemorrhoids; K29.50 Unspecified chronic gastritis without bleeding; K63.89 Other specified diseases of intestine; K31.89 Other diseases of stomach and duodenum; K21.9 Gastro-esophageal reflux disease without esophagitis; I10 Essential (primary) hypertension; J44.9 Chronic obstructive pulmonary disease, unspecified; F41.9 Anxiety disorder, unspecified; F32.9 Major depressive disorder, single episode, unspecified; M19.90 Unspecified osteoarthritis, unspecified site; F17.210 Nicotine dependence, cigarettes, uncomplicated; Z79.899 Other long term (current) drug therapy; Z90.49 Acquired absence of other specified parts of digestive tract; Z90.710 Acquired absence of both cervix and uterus; Z98.890 Other specified postprocedural states; Z88.0 Allergy status to penicillin; Z88.1 Allergy status to other antibiotic agents; Z88.5 Allergy status to narcotic agent; Z91.040 Latex allergy status; Z88.8 Allergy status to other drugs, medicaments and biological substances
CPT/HCPCS: 43239; 45380; J2704

== ENCOUNTER → 2021-04-22 | Outpatient (CLI) | payer MEDICAID ==
[2021-03-31 10:51] VITALS: BP 127/69
[~2021-04-22] MED LIST changes: -IV RINGERS,LACTATED 1000ML 1,000 ML IV SCH; -PROPOFOL 10 MG/ML (20ML) VIAL. IV ONE
--- NOTE | 2021-04-22 13:42 | RAD ---
EXAMINATION: MRI/MRCP abdomen without IV contrast. INDICATION:60 years, Female, dilated common bile duct. TECHNIQUE: Multiplanar multisequence MRI/MRCP of the abdomen was performed. 3-D coronal heavily T2-we ighted MRCP sequences obtained. COMPARISON: CT dated 03/06/2021. FINDINGS: LOWER CHEST: Unremarkable. ABDOMEN: Normal size and morphology of the liver. Diffuse hepatic steatosis. New 2.4 cm T1 hypointense lesion in hepatic segment 7 (series 6002 image 23). On T2-weighted images, this lesion has dark T2 rim with central bright T2 signal and adjacent parenchymal edema. No additional hepatic lesion identified. Cho lecystectomy. Similar dilated predominantly central intrahepatic and extrahepatic biliary ducts with smooth tapering distally, the maximum diameter of the common bile duct measures 2.0 cm. No filling de fect to suggest choledocholithiasis. No discrete obstructing masses, within the limitation of noncont rast exam. Mildly atrophic pancreatic parenchyma. Prominent main pancreatic duct at the head and neck measures u p to 4 mm. Unremarkable spleen. No adrenal nodule. No hydronephrosis in either kidney. Simple appeari ng bilateral renal cortical cysts measuring up to 7 mm. Nonspecific bilateral perinephric fat strandi ng. No bowel dilation. Small uncomplicated proximal duodenal diverticulum. Normal caliber abdominal a homer. No ascites. No lymphadenopathy in the abdomen by size criteria. MUSCULOSKELETAL: No suspicious osseous lesion. IMPRESSION: Within the limitation of noncontrast exam, 1. Similar dilated predominately central intrahepatic and extrahepatic biliary ducts with smooth tape ring distally. No choledocholithiasis or discrete obstructing masses. Additional, prominent main panc reatic duct at the head and neck. Overall findings likely secondary to postcholecystectomy status and ampullary spasm/dysfunction. Recommend correlation with liver function test and pancreatic enzymes. 2. New 2.4 cm hepatic segment 7 lesion with imaging characteristics suggesting of abscess. Other diff erential consideration is metastasis. Correlate clinically and consider follow-up with MRI without an d with IV contrast in 4 weeks to ensure resolution or further evaluation with tissue sampling. 3. Diffuse hepatic steatosis. Lemos findings were discussed with physician radiology physician assistant Gilma Rahman 1 04/22/2021 at 12:38 PM. Electronically signed by: Stephen Kerns MD (04/22/2021 1:39 PM) [id number]
== END ==
LOC: MRI 09:50
PROVIDERS: ATTEND Physician Assistant
DX: K76.0 Fatty (change of) liver, not elsewhere classified (principal); K57.10 Diverticulosis of small intestine without perforation or abscess without bleeding; K83.8 Other specified diseases of biliary tract
CPT/HCPCS: 74181

== ENCOUNTER → 2021-05-03 | Outpatient (CLI) | payer MEDICAID ==
[2021-03-31 10:51] VITALS: BP 127/69
[2021-05-03 12:39] LABS: BASO # 0.1 x10^3/uL (0.0-0.2); BASO % 1 % (0-3); EOS # 0.1 x10^3/uL (0.0-0.7); EOS % 2 % (0-3); HEMATOCRIT 31.3 % (36.0-47.0); HEMOGLOBIN 10.4 g/dL (12.0-15.5); LYMPH # 2.4 x10^3/uL (1.0-4.8); LYMPH % 30 % (24-48); MEAN CORPUSCULAR HEMOGLOBIN 36 pg (25-35); MEAN CORPUSCULAR HGB CONC 33 g/dL (31-37); MEAN CORPUSCULAR VOLUME 107 fL (79-100); MONO # 0.8 x10^3/uL (0.0-1.1); MONO % 10 % (0-9); NEUT # 4.5 x10^3/uL (1.8-7.7); NEUT % 57 % (31-73); PLATELET COUNT 315 x10^3/uL (140-400); RED BLOOD COUNT 2.92 x10^6/uL (3.50-5.40); RED CELL DISTRIBUTION WIDTH 14.3 % (11.5-14.5); WHITE BLOOD COUNT 7.9 x10^3/uL (4.0-11.0)
[2021-05-03 12:51] LABS: ALBUMIN 3.4 g/dL (3.4-5.0); ALBUMIN/GLOBULIN RATIO 0.7 (1.0-1.7); CALCIUM 8.9 mg/dL (8.5-10.1); GFR 56.2; POTASSIUM 3.9 mmol/L (3.5-5.1); TOTAL BILIRUBIN 0.5 mg/dL (0.2-1.0); TOTAL PROTEIN 8.2 g/dL (6.4-8.2)
== END ==
LOC: LAB 11:54
PROVIDERS: ATTEND Physician Assistant
DX: K76.9 Liver disease, unspecified (principal)
CPT/HCPCS: 36415; 80053; 82105; 85025

== ENCOUNTER → 2021-06-23 | Outpatient (CLI) | payer MEDICAID ==
[2021-03-31 10:51] VITALS: BP 127/69
--- NOTE | 2021-06-23 15:02 | KCIC ---
Bilateral digital screening mammograms: Reason for examination: Routine screening. Comparison is made to previous studies dated back to 04/29/2015. Interpretation is made with the benefit of CAD. An electronic device is present on the left. The skin and nipples show no abnormalities. No abnormal lymph nodes are seen. The breast parenchyma is predominantly fatty. (Breast density: Category A.) The re continue to be small nodular parenchymal densities bilaterally which are stable. There are no new dominant masses, suspicious calcifications or architectural distortions. Impression: No evidence of malignancy. Recommend routine screening. BI-RADS Category 2: Benign. "Our facility is accredited by the [employer] Mammography Program." This patient's information has been entered into a reminder system for the patient to be notified wit h the results of her examination and a target date for the next mammogram. Electronically signed by: Majo Moralez MD (06/23/2021 3:00 PM) [id number]
== END ==
LOC: KCIC MAMMO 10:32
PROVIDERS: ATTEND Nurse Practitioner Family
DX: Z12.31 Encounter for screening mammogram for malignant neoplasm of breast (principal)
CPT/HCPCS: 77067

== ENCOUNTER → 2021-07-04 | Outpatient (CLI) | payer MEDICAID ==
[2021-03-31 10:51] VITALS: BP 127/69
== END ==
LOC: LAB 11:17
PROVIDERS: ATTEND Internal Medicine Gastroenterology
DX: R10.13 Epigastric pain (principal)
CPT/HCPCS: 36415; 86160

== ENCOUNTER → 2021-07-05 | Outpatient (CLI) | payer MEDICAID ==
[2021-03-31 10:51] VITALS: BP 127/69
--- NOTE | 2021-07-05 16:04 | KCIC ---
EXAM: XR SHOULDER_LEFT 2+ VIEWS 07/05/2021 11:34 AM CLINICAL INDICATION: Left shoulder pain, began after sleeping on COMPARISON: None TECHNIQUE: 3 views of the left shoulder FINDINGS: No acute fracture. Alignment is normal. The glenohumeral joint is maintained. There is mil d acromioclavicular degenerative joint disease. Type II acromion. The subacromial space is preserved. Electronic device is seen in the left chest wall. There are calcifications in the thoracic aorta. IMPRESSION: No acute osseous abnormality. Mild acromioclavicular degenerative joint disease. Electronically signed by: Florence Cast MD (07/05/2021 4:01 PM) [id number]
== END ==
LOC: KCIC 11:32
PROVIDERS: ATTEND Nurse Practitioner Family
DX: M19.012 Primary osteoarthritis, left shoulder (principal); I70.0 Atherosclerosis of aorta
CPT/HCPCS: 73030

== ENCOUNTER → 2021-10-11 | Outpatient (CLI) | payer MEDICAID ==
[2021-03-31 10:51] VITALS: BP 127/69
--- NOTE | 2021-10-11 13:29 | KCIC ---
CT THORAX WO History: Mucopurulent chronic bronchitis Technique: Noncontrast CT of the chest was performed. Coronal and sagittal reconstructions were perfo rmed. Exposure: One or more of the following individualized dose reduction techniques were utilized for thi s examination: 1. Automated exposure control 2. Adjustment of the mA and/or kV according to patient size 3. Use of iterative reconstruction technique. Comparison: CT abdomen pelvis March 06, 2021 Findings: Chest: Coronary artery calcifications. No pathologic lymphadenopathy. Moderate mixed plaque within th e aorta. No consolidation or pleural effusion. No pneumothorax. Mild paraseptal emphysema. Upper abdomen: Pneumobilia. Dilated bile ducts, unchanged. Prior cholecystectomy. Bones: No pathologic osseous lesions. Impression: 1. No acute thoracic pathology. 2. Pulmonary emphysema. 3. Dilated bile ducts with pneumobilia. Electronically signed by: Tulio Awad DO (10/11/2021 1:27 PM) [facility]
--- NOTE | 2021-10-11 13:40 | KCIC ---
CT MAXILLOFACIAL WITHOUT CONTRAST History: Reason: Chronic rhinitis. / Spl. Instructions: / History: Comparison: None. Technique: Noncontrast CT imaging was performed of the sinuses. Coronal and sagittal reconstructions were performed. Exposure: One or more of the following individualized dose reduction techniques were utilized for thi s examination: 1. Automated exposure control 2. Adjustment of the mA and/or kV according to patient size 3. Use of iterative reconstruction technique. Findings: Chronic right nasal bone fracture. Maxillary nedra. Bilateral maxillary sinus polypoid mucosal thicken ing, left greater than right. Minimal ethmoid sinus mucosal thickening. Frontal and sphenoid sinuses are clear. Mild mucosal thickening within the infundibulum. Patent frontoethmoidal recesses and sphen oid ostia. Rightward nasal septal deviation and spurring. Left be bullosa. No acute fracture. Orbits are unremarkable. Imaged intracranial contents are unremarkable. Impression: 1. Mild paranasal sinus disease most prominent within the maxillary sinuses with narrowed infundibul a. 2. Rightward nasal septal deviation. Electronically signed by: Tulio Awad DO (10/11/2021 1:37 PM) [facility]
== END ==
LOC: KCIC CT 09:08
PROVIDERS: ATTEND Otolaryngology
DX: S02.2XXA Fracture of nasal bones, initial encounter for closed fracture (principal); J43.8 Other emphysema; J34.2 Deviated nasal septum; I70.0 Atherosclerosis of aorta; I25.10 Atherosclerotic heart disease of native coronary artery without angina pectoris; J34.89 Other specified disorders of nose and nasal sinuses; K83.8 Other specified diseases of biliary tract; J31.0 Chronic rhinitis; Z90.49 Acquired absence of other specified parts of digestive tract; J41.1 Mucopurulent chronic bronchitis; X58.XXXA Exposure to other specified factors, initial encounter; Y93.89 Activity, other specified; Y92.89 Other specified places as the place of occurrence of the external cause; Y99.8 Other external cause status
CPT/HCPCS: 70486; 71250